=== PATIENT | female | born 1960 | race Caucasian/White ===

== ENCOUNTER 2018-10-12 08:09 | Inpatient (IN) | payer OTHER ==
[~2018-10-12] VITALS: Ht 170.2 cm; Wt 79.4 kg
[2018-10-12] MEDS ORDERED: VANCOMYCIN 1 GM in IV D5W 250 ML IV ONE (09:00)
--- NOTE | 2018-10-12 09:10 | NUR ---
PT REC'D TO ER C/O EDEMA ZEINA LEGS WOUND OPENED RT SIDE OF CALF BROWISH COLOR RT HEAL SBCESS OPENED . ULTRASOUND CALLED. HARD STICK PT USES . NO TEMP PT VERY CALM AND NICE . LAB IN CULTURES AND LABS DRAWN SENT TO LAB AWAITING EVALUATION BY ER PROVIDER.
[2018-10-12 09:26] LABS: BASOPHILS % (AUTO) 0.7 % (0.0-2.0); EOSINOPHILS % (AUTO) 1.5 % (0.0-6.0); HEMATOCRIT 27 % (33-45); HEMOGLOBIN 8.7 g/dL (11.5-14.8); LYMPHOCYTES % (AUTO) 40.1 % (20.0-44.0); MEAN CORPUSCULAR HGB CONC 33 g/dl (31.0-36.0); MEAN CORPUSCULAR VOLUME 85 fL (82-100); MONOCYTES # (AUTO) 0.4 /CMM (0.1-1.30); MONOCYTES % (AUTO) 8.3 % (2.0-12.0); NEUTROPHILS # (AUTO) 2.5 /CMM (1.8-8.9); NEUTROPHILS % (AUTO) 49.4 % (43.0-81.0); PLATELET COUNT (AUTO) 253 /CMM (150-450); RED BLOOD CELL COUNT(AUTO) 3.12 MIL/uL (4.0-5.2); WHITE BLOOD COUNT (AUTO) 5.1 K/uL (4.3-11.0)
[2018-10-12 09:32] LABS: CALCIUM, SERUM 8.2 mg/dL (8.5-10.1); POTASSIUM 3.2 mmol/L (3.5-5.1)
[2018-10-12 09:38] LABS: ALBUMIN 2.7 g/dL (3.4-5.0); BILIRUBIN,DIRECT 0.1 mg/dL (0.0-0.2); BILIRUBIN,TOTAL 0.2 mg/dL (0.2-1.0); TOTAL PROTEIN, SERUM 7.9 g/dL (6.4-8.2)
--- NOTE | 2018-10-12 10:00 | NUR ---
VANCO 1 GM GIVEN PER MD ORDER
--- NOTE | 2018-10-12 10:06 | NUR ---
CALLED [facility] ITS YOLANDA
--- NOTE | 2018-10-12 10:06 | NUR ---
ASKED FOR A BED
--- NOTE | 2018-10-12 10:16 | NUR ---
204-1 MS YOLANDA WEISS CELLULITIS
[2018-10-12] MEDS ORDERED: LEVO25TA7 PO (10:29)
--- NOTE | 2018-10-12 10:30 | NUR ---
RT FA IV SITE 20G INFUSING VANCO TO THE FLOOR REPORT GIVEN TO RN STABLE FOR TRANSFER
--- NOTE | 2018-10-12 10:30 | NUR ---
PT VOIDED 500CC CLOUDY URINE UA SENT TO LAB
[2018-10-12 11:15] VITALS: BP 125/74
[2018-10-12] MEDS ORDERED: ZOLPIDEM TARTRATE 5 MG TABLET PO PRN (12:00)
[2018-10-12] MEDS ORDERED: Z GUARD REMEDY 2 OZ OINT TP PRN (12:00)
[2018-10-12] MEDS ORDERED: ACETAMINOPHEN 325 MG TABLET PO PRN (12:00)
[2018-10-12] MEDS ORDERED: HYDROCODONE/APAP 5/325MG 1 EACH TABLET PO PRN (12:00)
[2018-10-12] MEDS ORDERED: ONDANSETRON HCL/PF 4 MG/2 ML VIAL IVP PRN (12:00)
[2018-10-12] MEDS ORDERED: MAGNESIUM HYDROXIDE 30 ML UDC PO PRN (12:00)
[2018-10-12] MEDS ORDERED: FEE PK DOSING 1 MIN EA MC ONE (12:13)
--- NOTE | 2018-10-12 12:15 | NUR ---
MS AGED OR DISABLED CARE WORKER NOTES RECEIVED PT FROM ER DEPARTMENT WITH 1 NURSE ASSIST, ARRIVED AT THE ROOM AT 1110 VIA STRETCHER. PT INTERMITTENTLY DOZING OFF, EASILY AROUSED. PER ER NURSE, PT HAS BEEN ON AND OF, AND SLEEPY DUE TO NO SLEEP LAST NIGHT. PT TOLERATING RA, WITH NO ACUTE RESPIRATORY DISTRESS. PT DENIES ANY PAIN OR THIS COMFORT AT THE TIME OF ADMISSION. PT ADMITTED FOR DX OF BLE EDEMA. SKIN ASSESSED. PICTURES TAKEN AND FILED IN THE CHART. ADMITTING HOSPITALIST UNDERTAKER HELPER/CC MADE AWARE OF ADMISSION. ADMISSION INFORMATION PROVIDED BY THE PT; SOME OF QUESTIONS PT CAN'T RECALL AND STILL FEELING SLEEPY AND DOESN'T WANT TO BE BOTHERED. PIV TO RFA G20 SL, FLUSHED WITH NS, INTACT AND OPERATIONAL. PT KEPT COMFORTABLE. CALL LIGHT AND FLUID KEPT WITHIN REACH. PT'S BED IN LOWEST, LOCKED POSITION WITH SR X2. WILL CONTINUE PLAN OF CARE.
[2018-10-12 12:54] LABS: APPEARANCE,URINE CLEAR (CLEAR); BILIRUBIN,URINE NEGATIVE (NEGATIVE); BLOOD, URINE NEGATIVE Ery/uL (NEGATIVE); COLOR,URINE YELLOW (YELLOW); KETONES,URINE NEGATIVE (NEGATIVE); LEUKOCYTE ESTERASE ,URINE 1+ (NEGATIVE); NITRITE, URINE NEGATIVE (NEGATIVE); PROTEIN,URINE TRACE mg/dl (NEGATIVE); UGLUCOSE NEGATIVE (NEGATIVE); UROBILINOGEN,URINE 0.2 EU/dL (0.2)
[2018-10-12 13:00] VITALS: BP 125/74
[2018-10-12 13:53] LABS: BACTERIA,URINE Rare /HPF (None Seen); RBC,URINE 0-2 /HPF (0-2); SQUAMOUS EPITHELIAL CELL,UR Few /HPF (None Seen); WBC,URINE 20-30 /HPF (0-3)
--- NOTE | 2018-10-12 13:55 | NUR ---
MS RN NOTES SEEN AND EVALUATED BY HARBOUR MASTER/CC. AWARE OF PT'S LEVEL OF CONSCIOUSNESS. ORDERED CT OF CHEST AND ABDOMEN STAT. WILL CONTINUE TO MONITOR.
[2018-10-12] MEDS ORDERED: POTASSIUM CHLORIDE 10 MEQ TABLET.SA PO ONE (14:00)
--- NOTE | 2018-10-12 14:00 | NUR ---
MS RN NOTES POTASSIUM REPLACEMENT 10MEQ PO AT 1400, NOT GIVEN. DOSES CHANGED TO IV PER PT IS DIFFICULT TO AROUSED. WILL CONTINUE TO MONITOR.
[2018-10-12] MEDS: IV NS 0.9% 1,000 ML IV PRN (14:46)
[2018-10-12] MEDS ORDERED: POTASSIUM CL. PREMIX PERIPHER. 50 ML IV SCH (15:00)
[2018-10-12] MEDS ORDERED: POTASSIUM CHLORIDE 20 MEQ TAB.PRT.SR PO ONE (15:30)
--- NOTE | 2018-10-12 15:31 | NUR ---
MS RN NOTES PT AWAKE, REQUESTED OK TO GET POTASSIUM PO FOR REMAINING DOSES. APARTMENT HOTEL MANAGER/CC MADE AWARE. WILL CONTINUE TO MONITOR.
[2018-10-12 16:00] VITALS: BP 99/61
--- NOTE | 2018-10-12 18:59 | NUR ---
MS RN CLOSING NOTES PT REMAINS IN BED, STILL SLEEPY AND TIRED VERBALIZED. PT INTERMITTENTLY DOZING OFF, EASILY AROUSED WHEN CALLED BY NAME. IVF NS AT 75 ML/HR TO RFA G20 , INTACT AND FLUID INFUSING WELL. ALL NEEDS AND CARE ATTENDED. PT KEPT COMFORTABLE. BLE ELEVATED. CALL LIGHT AND FLUID KEPT WITHIN REACH. PT'S BED IN LOWEST, LOCKED POSITION WITH SR X2. WILL ENDORSE TO INCOMING NIGHT NURSE FOR LAMONT.
--- NOTE | 2018-10-12 19:33 | NUR ---
MS RN RECEIVE PT IN BED A/O X 3, ASLEEP AND EASILY AWAKEN, STABLE RESPIRATIONS EVEN AND UNLABORED, SAFETY MEASURES IN PLACE. WILL CONTINUE TO MONITOR
[2018-10-12 20:00] VITALS: BP 124/75
[2018-10-12 20:06] VITALS: BP 124/75
--- NOTE | 2018-10-12 21:00 | NUR ---
RN NOTES SECURITY CALLED FOR VISITOR. ASKED PT IF SHE IS EXPECTING A VISITOR PT PREFERS TO VISIT HER IN AM PT WANTED TO SLEEP AT THIS TIME.
[2018-10-13] MEDS: IV NS 0.9% 1,000 ML IV PRN ×2 (05:15→19:41)
--- NOTE | 2018-10-13 06:11 | NUR ---
MS RN ASLEEP AND EASILY AWAKEN, RESPIRATIONS EVEN AND UNLABORED. SLEPT WELL THROUGHOUT THE NIGHT. KEPT CLEAN AND DRY AND COMFORTABLE. NEEDS ATTENDED AND ANTICIPATED, NO C/O OF PAIN. OFFLOAD HEELS AND ELBOWS AT ALL TIMES. ASSISTED REPOSITION EVERY 2 HOURS. SAFETY MEASURES AT ALL TIMES. ENDORSE TO THE NEXT SHIFT.
[2018-10-13 06:22] LABS: BASOPHILS % (AUTO) 0.5 % (0.0-2.0); EOSINOPHILS % (AUTO) 1.4 % (0.0-6.0); HEMATOCRIT 26 % (33-45); HEMOGLOBIN 8.4 g/dL (11.5-14.8); LYMPHOCYTES # (AUTO) 1.3 /CMM (0.8-4.8); LYMPHOCYTES % (AUTO) 29.9 % (20.0-44.0); MEAN CORPUSCULAR HGB CONC 33 g/dl (31.0-36.0); MEAN CORPUSCULAR VOLUME 84 fL (82-100); MONOCYTES # (AUTO) 0.3 /CMM (0.1-1.30); NEUTROPHILS # (AUTO) 2.6 /CMM (1.8-8.9); NEUTROPHILS % (AUTO) 61.2 % (43.0-81.0); PLATELET COUNT (AUTO) 208 /CMM (150-450); RED BLOOD CELL COUNT(AUTO) 3.07 MIL/uL (4.0-5.2); WHITE BLOOD COUNT (AUTO) 4.2 K/uL (4.3-11.0)
[2018-10-13 06:45] LABS: CALCIUM, SERUM 7.8 mg/dL (8.5-10.1); CREATININE 1.2 mg/dL (0.6-1.3); MAGNESIUM 1.9 mg/dL (1.8-2.4); PHOSPHORUS 3.4 mg/dL (2.5-4.9); POTASSIUM 3.4 mmol/L (3.5-5.1)
--- NOTE | 2018-10-13 07:31 | NUR ---
RN OPENING NOTES PT SLEEPING IN BED. NO APPARENT S/S OF PAIN, DISTRESS OR SOB AT THIS TIME. PT HAS RIGHT FOREARM #20 IV INTACT AND RUNNING NS @75ML/HR. SAFETY PRECAUTIONS IN PLACE, BED IN LOWEST LOCKED POSITION, X2 SIDE RAILS UP AND CALL LIGHT WITHIN REACH. WILL CONTINUE TO MONITOR.
[2018-10-13 08:00] VITALS: BP 113/74
[2018-10-13] MEDS ORDERED: POTASSIUM CHLORIDE 20 MEQ TAB.PRT.SR PO SCH (08:00)
[2018-10-13] MEDS ORDERED: VANCOMYCIN 1 GM in IV D5W 250 ML IV SCH ×2 (10:00→21:00)
[2018-10-13 16:00] VITALS: BP 141/76
--- NOTE | 2018-10-13 19:10 | NUR ---
MS RN NOTE RECEIVED PT IN STABLE CONDITION A&O X3, ABLE TO MAKE NEEDS KNOWN. CURRENTLY RESTING IN BED, GUEST AT BEDSIDE. NO SIGNS OF SOB OR DISTRESS, NO C/O PAIN. IV IN R FA IN PLACE WITH IVF INFUSING, TOLERATING WELL. ALL CURRENT NEEDS ATTENDED TO. BED LOW, LOCKED, UPPER RAILS UP, AND CALL LIGHT WITHIN REACH. WILL CONT. TO MONITOR.
--- NOTE | 2018-10-13 19:39 | NUR ---
RN OPENING NOTES PT SLEEPING IN BED. NO APPARENT S/S OF PAIN, DISTRESS OR SOB DURING SHIFT. PT HAS RIGHT FOREARM #20 IV INTACT AND RUNNING NS @75ML/HR. SAFETY PRECAUTIONS IN PLACE, BED IN LOWEST LOCKED POSITION, X2 SIDE RAILS UP AND CALL LIGHT WITHIN REACH. WILL ENDORSE TO FURNITURE SHAMPOOER NURSE FOR CONTINUITY OF CARE.
[2018-10-13 20:05] VITALS: BP 119/67
--- NOTE | 2018-10-13 21:34 | NUR ---
MS RN NOTE PT. STATING THAT SHE IS GONG THROUGH WITHDRAWAL OF METHADONE. DEMANDING TO LEAVE HOSPITAL IMMEDIATELY. PT. PULLED OUT OWN IV AND RIPPED OFF HOSPITAL WRISTBAND. REFUSING TO SIGN AMA FORM. RISKS AND BENEFITS MADE AWARE, VERBALIZATION OF UNDERSTANDING. ALL BELONGINGS TAKEN WITH PT. ESCORTED BY PARKING LOT ATTENDANT AND CASHIER TO FRONT OF HOSPITAL AND PT PICKED UP IN PERSONAL VEHICLE. EVELYN ADAM AND NURSING ELECTRIC MULE DRIVER MADE AWARE OF PT. DEPARTURE.
[2018-10-14] MEDS ORDERED: LEVOTHYROXINE SODIUM 25 MCG TABLET PO SCH (07:30)
--- NOTE | 2018-10-14 08:17 | NUR ---
Social service consult requested by GILBERTO Stroud for homelessness. SW unable to assess pt. due to pt. leaving the hospital AMA last night.
--- NOTE | 2018-10-18 08:08 | NUR ---
ECHO REPORT IS DONE AWAITING FOR REPORT TO CROSS OVER TO [facility].
== END 2018-10-13 21:34 | disposition left against medical advice (07) | DRG 469 ==
LOC: ER 08:13 → MEDSG2 10:25
PROVIDERS: ADMIT Nurse Practitioner Acute Care; ATTEND Nurse Practitioner Acute Care
DX: N17.0 Acute kidney failure with tubular necrosis (principal); E44.0 Moderate protein-calorie malnutrition; I87.1 Compression of vein; L03.116 Cellulitis of left lower limb; Z85.72 Personal history of non-Hodgkin lymphomas; N18.9 Chronic kidney disease, unspecified; Z92.21 Personal history of antineoplastic chemotherapy; D63.8 Anemia in other chronic diseases classified elsewhere; E87.6 Hypokalemia; Z59.0 Homelessness
CPT/HCPCS: 36415; 71045-TC; 71250-TC; 73590-TC; 80048-TC; 80061-TC; 80076-TC; 81000-TC; 83735-TC; 84100-TC; 85025-TC; 87040-TC; 87081-TC; 87086-TC; 93307-TC; 93970-TC; A6402; G0378; J3370; J3480; J7030; J7060

== ENCOUNTER 2019-02-15 02:05 | Emergency (ER) | payer OTHER ==
[~2019-02-15] VITALS: Ht 174 cm; Wt 63.5 kg
[~2019-02-15 02:05] MED LIST: LEVO25TA7 PO
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
[2019-02-15] MEDS ORDERED: LORAZEPAM 0.5 MG TABLET ONE (03:47)
[2019-02-15] MEDS ORDERED: LORAZEPAM 1 MG TABLET PO ONE (04:00)
[2019-02-15 04:12] VITALS: BP 123/76
--- NOTE | 2019-02-15 04:12 | NUR ---
Patient is ambulatory, with steady gait. Patient discharged to home in stable condition. Written and verbal after care instructions given. Patient verbalizes understanding of instruction.
== END 2019-02-15 04:13 | disposition home or self-care (01) ==
LOC: ER 02:07
DX: S16.1XXA Strain of muscle, fascia and tendon at neck level, initial encounter (principal); R51 Headache; F17.200 Nicotine dependence, unspecified, uncomplicated; Z59.0 Homelessness; Z79.899 Other long term (current) drug therapy; V49.59XA Passenger injured in collision with other motor vehicles in traffic accident, initial encounter; Y93.89 Activity, other specified; Y92.488 Other paved roadways as the place of occurrence of the external cause; Y99.8 Other external cause status
CPT/HCPCS: 70450-TC; 72125-TC

== ENCOUNTER 2019-03-20 22:30 | Emergency (ER) | payer OTHER ==
[~2019-03-20] VITALS: Ht 172.7 cm; Wt 63.5 kg
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
[2019-03-20] MEDS ORDERED: METOCLOPRAMIDE HCL 10 MG/2 ML VIAL IV ONE (23:00)
[2019-03-20] MEDS ORDERED: SUMATRIPTAN SUCCINATE 6 MG/0.5 ML VIAL SQ ONE ×2 (23:00→23:04)
[2019-03-20] MEDS ORDERED: IV NS 0.9% 1,000 ML BAG IV ONE (23:00)
[2019-03-20] MEDS ORDERED: METOCLOPRAMIDE HCL 10 MG/2 ML VIAL ONE (23:05)
--- NOTE | 2019-03-20 23:28 | NUR ---
PT TAKEN TO CT
--- NOTE | 2019-03-21 00:27 | NUR ---
PT VERBALIZED FEELING MUCH BETTER. AOX4.VSS AT THIS TIME. AMBULATORY
[2019-03-21 01:29] VITALS: BP 141/89
== END 2019-03-21 01:29 | disposition home or self-care (01) ==
LOC: ER 22:30
DX: G43.909 Migraine, unspecified, not intractable, without status migrainosus (principal); F17.200 Nicotine dependence, unspecified, uncomplicated; Z59.0 Homelessness; Z79.899 Other long term (current) drug therapy
CPT/HCPCS: 70450; 96372; 96374; 99284; J2765; J3030; J7030 ×2

== ENCOUNTER 2019-04-13 23:27 | Emergency (ER) | payer OTHER ==
[~2019-04-13] VITALS: Ht 172.7 cm; Wt 63.5 kg
--- NOTE | 2019-04-13 23:48 | NUR ---
PT PRESENTED TO THE ER WITH A C/O PAIN AND BURNING W/URINATION, FEVER, CHILLS, NAUSEA, BODY ACHES, AND CONGESTION. PT AMBULATED INTO THE ER WITH A SLOW STEADY GAIT.
[2019-04-14] MEDS ORDERED: ONDANSETRON HCL/PF 4 MG/2 ML VIAL ONE (00:01)
[2019-04-14] MEDS ORDERED: MORPHINE SULFATE INJ 4 MG/ML DISP.SYRIN ONE (00:01)
[2019-04-14] MEDS: IV NS 0.9% 1,000 ML BAG IV ONE (00:29)
[2019-04-14 00:32] LABS: BASOPHILS % (AUTO) 0.2 % (0.0-2.0); EOSINOPHILS % (AUTO) 0.1 % (0.0-6.0); HEMATOCRIT 33 % (33-45); HEMOGLOBIN 10.9 g/dL (11.5-14.8); LYMPHOCYTES % (AUTO) 9.8 % (20.0-44.0); MEAN CORPUSCULAR HGB CONC 33 g/dl (31.0-36.0); MEAN CORPUSCULAR VOLUME 94 fL (82-100); MONOCYTES # (AUTO) 1.2 /CMM (0.1-1.30); MONOCYTES % (AUTO) 11.8 % (2.0-12.0); NEUTROPHILS # (AUTO) 7.8 /CMM (1.8-8.9); NEUTROPHILS % (AUTO) 78.1 % (43.0-81.0); PLATELET COUNT (AUTO) 158 /CMM (150-450); RED BLOOD CELL COUNT(AUTO) 3.48 MIL/uL (4.0-5.2)
[2019-04-14] MEDS: MORPHINE SULFATE INJ 2 MG/ML DISP.SYRIN IV ONE (00:32)
[2019-04-14] MEDS: ONDANSETRON HCL/PF 4 MG/2 ML VIAL IVP ONE (00:32)
[2019-04-14 00:37] LABS: APPEARANCE,URINE TURBID (CLEAR); BILIRUBIN,URINE NEGATIVE (NEGATIVE); BLOOD, URINE LARGE Ery/uL (NEGATIVE); COLOR,URINE YELLOW (YELLOW); KETONES,URINE NEGATIVE (NEGATIVE); LEUKOCYTE ESTERASE ,URINE LARGE (NEGATIVE); NITRITE, URINE POSITIVE (NEGATIVE); PH,URINE 6.5 (5.0-8.0); PROTEIN,URINE 100 mg/dl (NEGATIVE); UGLUCOSE NEGATIVE (NEGATIVE)
[2019-04-14 00:42] LABS: CALCIUM, SERUM 8.2 mg/dL (8.5-10.1); CREATININE 1.1 mg/dL (0.6-1.3); POTASSIUM 3.3 mmol/L (3.5-5.1)
[2019-04-14 00:42] LABS: BACTERIA,URINE Few /HPF (None Seen); SQUAMOUS EPITHELIAL CELL,UR Rare /HPF (None Seen); WBC,URINE TOO NUMEROUS TO COUN /HPF (0-3)
[2019-04-14 00:47] LABS: ALBUMIN 2.7 g/dL (3.4-5.0); BILIRUBIN,DIRECT 0.2 mg/dL (0.0-0.2); BILIRUBIN,TOTAL 0.5 mg/dL (0.2-1.0); TOTAL PROTEIN, SERUM 7.7 g/dL (6.4-8.2)
[2019-04-14] MEDS ORDERED: LIDOCAINE VISCOUS 2% UD 15 ML UDC ONE (00:49)
--- NOTE | 2019-04-14 00:56 | NUR ---
CALLED [facility] TO F/U W/ CT RESULT
--- NOTE | 2019-04-14 01:34 | NUR ---
IV removed. Catheter intact and site benign. Pressure and 4x4 applied to site. No bleeding noted. Patient discharged to home in stable condition. Written and verbal after care instructions given. Patient verbalizes understanding of instruction AND RX. PT IS TAKING A TAXI HOME VSS. NAD NOTED.
[2019-04-14 01:36] VITALS: BP 132/78
== END 2019-04-14 01:38 | disposition home or self-care (01) ==
LOC: ER 23:29
DX: N39.0 Urinary tract infection, site not specified (principal); K59.00 Constipation, unspecified; K44.9 Diaphragmatic hernia without obstruction or gangrene; F17.200 Nicotine dependence, unspecified, uncomplicated; Z59.0 Homelessness; Z79.899 Other long term (current) drug therapy
CPT/HCPCS: 36415; 74176; 80048; 80076; 81001; 83690; 85025; 87077; 87086; 87186; 96374; 96375; 99284; J2270; J2405; J7030; 81000-TC

== ENCOUNTER 2019-04-21 23:35 | Inpatient (IN) | payer OTHER ==
[~2019-04-21] VITALS: Ht 162.6 cm; Wt 62.6 kg
--- NOTE | 2019-04-21 23:55 | NUR ---
Pt BIBSELF FROM HOME C/O COUGH & CONGESTION WITH SOB. Pt IS A/OX3, VERBAL, ABLE TO MAKE NEEDS KNOWN. Pt IS BEING SEEN BY MD AT BEDSIDE. WILL CONTINUE TO MONITOR Pt
[2019-04-22] VITALS (46 sets, daily range): BP systolic 62–132; BP diastolic 35–78
[2019-04-22] MEDS ORDERED: IPRATROPIUM NEB FS 0.5 MG/2.5 ML AMPUL.NEB NEB ONE
[2019-04-22] MEDS ORDERED: NITROGLYCERIN PACKET 1 GM PACKET TD ONE
[2019-04-22] MEDS ORDERED: ALBUTEROL FS 2.5 MG/3 ML VIAL.NEB NEB ONE
[2019-04-22] MEDS ORDERED: methylPREDNISolone SOD SUCC 125 MG/2ML VIAL IV ONE
--- NOTE | 2019-04-22 00:35 | NUR ---
IV ACCESS STARTED ON LWRIST #20G, SL.
[2019-04-22] MEDS ORDERED: methylPREDNISolone SOD SUCC 125 MG/2ML VIAL ONE (00:45)
[2019-04-22] MEDS ORDERED: NITROGLYCERIN PACKET 1 GM PACKET ONE (00:46)
--- NOTE | 2019-04-22 00:54 | NUR ---
CXR BEING DONE AT BEDSIDE
[2019-04-22 01:02] LABS: BASOPHILS % (AUTO) 0.1 % (0.0-2.0); HEMATOCRIT 34 % (33-45); HEMOGLOBIN 11.5 g/dL (11.5-14.8); LYMPHOCYTES # (AUTO) 0.3 /CMM (0.8-4.8); LYMPHOCYTES % (AUTO) 2.2 % (20.0-44.0); MEAN CORPUSCULAR HGB CONC 34 g/dl (31.0-36.0); MEAN CORPUSCULAR VOLUME 92 fL (82-100); MONOCYTES # (AUTO) 0.2 /CMM (0.1-1.30); MONOCYTES % (AUTO) 1.6 % (2.0-12.0); NEUTROPHILS # (AUTO) 13.9 /CMM (1.8-8.9); NEUTROPHILS % (AUTO) 96.1 % (43.0-81.0); PLATELET COUNT (AUTO) 273 /CMM (150-450); RED BLOOD CELL COUNT(AUTO) 3.73 MIL/uL (4.0-5.2); WHITE BLOOD COUNT (AUTO) 14.4 K/uL (4.3-11.0)
[2019-04-22 01:13] LABS: CALCIUM, SERUM 8.3 mg/dL (8.5-10.1); CARBON DIOXIDE 27 mmol/L (21-32); CHLORIDE 101 mmol/L (98-107); CREATININE 1.5 mg/dL (0.6-1.3); GLUCOSE 119 mg/dL (74-106); POTASSIUM 3.6 mmol/L (3.5-5.1); SODIUM SERUM 139 mmol/L (136-145); UREA NITROGEN, BLOOD 43 mg/dL (7-18)
[2019-04-22 01:26] LABS: ALANINE AMINOTRANSFERASE 26 U/L (12-78); ALBUMIN 2.4 g/dL (3.4-5.0); ALKALINE PHOSPHATASE 262 U/L (46-116); ASPARTATE AMINOTRANSFERASE 59 U/L (15-37); B-TYPE NATRIURETIC PEPTIDE 1885 PG/ML (0-125); BILIRUBIN,DIRECT 0.4 mg/dL (0.0-0.2); BILIRUBIN,TOTAL 0.8 mg/dL (0.2-1.0); TOTAL PROTEIN, SERUM 8.1 g/dL (6.4-8.2)
[2019-04-22] MEDS ORDERED: IOHEXOL-350 100 ML VIAL IV ONE ×2 (01:49→02:37)
[2019-04-22] MEDS ORDERED: FUROSEMIDE 20 MG/2 ML VIAL ONE ×2 (01:51→04:43)
[2019-04-22] MEDS ORDERED: POTASSIUM CHLORIDE 20 MEQ TAB.PRT.SR PO ONE ×2 (01:52→02:00)
[2019-04-22] MEDS ORDERED: IV NS 0.9% 500 ML BAG IV ONE (02:00)
[2019-04-22] MEDS ORDERED: FUROSEMIDE 20 MG/2 ML VIAL IV ONE ×2 (02:00→08:00)
[2019-04-22] MEDS ORDERED: LEVOFLOXACIN 750 MG /D5W 150ML 150 ML IV ONE ×2 (02:00→03:26)
[2019-04-22] MEDS ORDERED: LORAZEPAM INJ 2 MG/ML VIAL ONE (02:18)
--- NOTE | 2019-04-22 02:31 | NUR ---
verbal order given by Dr. Harris ok to give ativan 1mg iv for pt's anxiety
--- NOTE | 2019-04-22 02:33 | NUR ---
pt taken down to radiology for ct angio
--- NOTE | 2019-04-22 03:00 | NUR ---
new iv access on LAC #18g
--- NOTE | 2019-04-22 03:09 | NUR ---
sup called for tele bed
--- NOTE | 2019-04-22 03:12 | NUR ---
TELE BED 322-2
[2019-04-22] MEDS ORDERED: OLANZAPINE 5 MG TABLET ONE (03:20)
[2019-04-22] MEDS ORDERED: ALBUTEROL FS 2.5 MG/3 ML VIAL.NEB ONE (03:25)
[2019-04-22] MEDS ORDERED: IPRATROPIUM NEB FS 0.5 MG/2.5 ML AMPUL.NEB ONE (03:25)
[2019-04-22] MEDS ORDERED: MAGNESIUM HYDROXIDE 30 ML UDC PO PRN (03:30)
[2019-04-22] MEDS ORDERED: IV NS 0.9% 1,000 ML IV PRN (03:30)
[2019-04-22] MEDS ORDERED: ZOLPIDEM TARTRATE 5 MG TABLET PO PRN (03:30)
[2019-04-22] MEDS ORDERED: MAG HYDROX/AL HYDROX/SIMETH 30 ML UDC PO PRN (03:30)
[2019-04-22] MEDS ORDERED: ONDANSETRON HCL/PF 4 MG/2 ML VIAL IVP PRN (03:30)
[2019-04-22] MEDS ORDERED: HYDROCODONE/APAP 5/325MG 1 EACH TABLET PO PRN (03:30)
[2019-04-22] MEDS ORDERED: LORAZEPAM INJ 2 MG/ML VIAL IV ONE (03:30)
[2019-04-22] MEDS ORDERED: OLANZAPINE 5 MG TABLET PO ONE (03:30)
--- NOTE | 2019-04-22 04:33 | NUR ---
repeat ekg being done at bedside
--- NOTE | 2019-04-22 04:33 | NUR ---
verbal order given by dr gonzalez to give morphine 6mg iv
[2019-04-22] MEDS ORDERED: MORPHINE SULFATE INJ 2 MG/ML DISP.SYRIN ONE (04:35)
[2019-04-22] MEDS ORDERED: MORPHINE SULFATE INJ 4 MG/ML DISP.SYRIN ONE (04:35)
[2019-04-22] MEDS ORDERED: PROPOFOL 100 ML IV ONE (04:37)
--- NOTE | 2019-04-22 04:37 | NUR ---
per dr gonzalez pt to be intubated. called RT
[2019-04-22] MEDS ORDERED: SUCCINYLCHOLINE CHLORIDE 20 MG/ML VIAL ONE (04:38)
--- NOTE | 2019-04-22 04:38 | NUR ---
morphine 6mg not given
[2019-04-22] MEDS ORDERED: ETOMIDATE 2 MG/ML VIAL ONE (04:39)
[2019-04-22] MEDS ORDERED: PROPOFOL 100 ML ONE (04:39)
--- NOTE | 2019-04-22 04:44 | NUR ---
PT GOT SUCCESSFULLY INTUBATED BY DR DESAI AT THE BED SIDE. TUBE SIZE:7.0 AND 22 AT LIP. PT REMAINED ON CONTINUOUS MONITORING AND CLOSE OBSERVATION,
--- NOTE | 2019-04-22 04:45 | NUR ---
RT NOTE Pt rec'd on 10lpm Simple mask. PT showed signs resp distress and lethargy. Pt orally intubated via ETT sz #7.0, 22CM secured @ the lipline per md request. Colormetric Co2 color change confirmed. Clear bilateral breath sounds heard. pt placed on noted setting per md orders. Waiting on chest xray results. Post intubation abg to be taken. Alarms are set and audible. Vent plugged into red outlet. Ambu bag bedside. Will continue to monitor closely Addendum: 04/22/19 at 0615 by ALFIE JONES RT Amended: Links added.
--- NOTE | 2019-04-22 04:50 | NUR ---
pt started on propofol at rate of 5mcg/kg/hr= 2.37ml/hr. on ongoing monitoring .
[2019-04-22] MEDS ORDERED: SUCCINYLCHOLINE CHLORIDE 20 MG/ML VIAL IV ONE (05:00)
[2019-04-22] MEDS ORDERED: MORPHINE SULFATE INJ 4 MG/ML DISP.SYRIN IV PRN (05:00)
[2019-04-22] MEDS ORDERED: ETOMIDATE 2 MG/ML VIAL IV ONE (05:00)
[2019-04-22] MEDS ORDERED: IV NS 0.9% 1,000 ML BAG IV ONE (05:00)
[2019-04-22 05:14] LABS: ABG BASE EXCESS -5.2 mmol/L; ABG OXYGEN SATURATION 99.1 % (92.0-98.5); ABG PCO2 48.8 mmHg (35.0-45.0); ABG PH 7.269 (7.350-7.450); ABG PO2 352.9 mmHg (75.0-100.0); AaDO2 311.3 mmHg; COHb 0.4 % (0.5-1.5); MetHb 0.4 % (0.0-1.5); O2Hb 98.3 % (94.0-97.0); PEEP,BG 0 cm H2O; SITE, ABG Right Radial; VENT MODE, BG AC 16 450 100%
--- NOTE | 2019-04-22 05:19 | NUR ---
RT NOTE Increased RR to 18 and CO2 to 550 per md orders. Addendum: 04/22/19 at 0616 by ALFEI JONES RT Amended: Links added.
[2019-04-22] MEDS ORDERED: HALOPERIDOL LACTATE INJ 5 MG/ML VIAL ONE ×2 (05:39)
--- NOTE | 2019-04-22 05:45 | NUR ---
per md ok to give 1L NS bolus due to low bp.
--- NOTE | 2019-04-22 05:47 | NUR ---
new vent settings set at: AC 18 Tidal Volume 550 PEEP 0
--- NOTE | 2019-04-22 05:56 | NUR ---
VS: BP 97/58 HR 85 02 100% PROPOFOL RUNNING AT 15MCG
--- NOTE | 2019-04-22 06:13 | NUR ---
Pt WAS WAKING UP, ATTEMPTING TO GET UP. INCREASED PROPOFOL RATE TO 25MCG. VS: BP 108/66 HR 82 O2 100%
--- NOTE | 2019-04-22 06:47 | NUR ---
VS BP: 120/63 HR 78 O2 100% Pt WAS BECOMING AROUSABLE. INCREASED PROPOFOL RATE TO 30MCG. WILL CONTINUE TO MONITOR Pt
--- NOTE | 2019-04-22 06:52 | NUR ---
VS: BP 108/68 HR 75 O2 100% R 18 DECREASED PROPOFOL RATE TO 25MCG. WILL CONTINUE TO MONITOR Pt AT BEDSIDE.
--- NOTE | 2019-04-22 07:05 | NUR ---
VS: BP 111/70 HR 77 O2 100% R 18 PROPOFOL RATE CONTINUED AT 25MCG.
--- NOTE | 2019-04-22 07:09 | NUR ---
VS: BP 127/78 HR 78 O2 100% R18 Pt IS BECOMING AROUSABLE, MOVING UPPER & LOWER EXTREMITIES & MOVING HEAD. INCREASED PROPOFOL RATE TO 30 MCG. WILL CONTINUE TO MONITOR Pt.
[2019-04-22 07:14] LABS: BASOPHILS % (AUTO) 0.1 % (0.0-2.0); HEMATOCRIT 30 % (33-45); HEMOGLOBIN 10.3 g/dL (11.5-14.8); LYMPHOCYTES # (AUTO) 0.2 /CMM (0.8-4.8); LYMPHOCYTES % (AUTO) 1.8 % (20.0-44.0); MEAN CORPUSCULAR HGB CONC 35 g/dl (31.0-36.0); MEAN CORPUSCULAR VOLUME 91 fL (82-100); MONOCYTES # (AUTO) 0.2 /CMM (0.1-1.30); MONOCYTES % (AUTO) 1.5 % (2.0-12.0); NEUTROPHILS # (AUTO) 10.5 /CMM (1.8-8.9); NEUTROPHILS % (AUTO) 96.6 % (43.0-81.0); PLATELET COUNT (AUTO) 241 /CMM (150-450); RED BLOOD CELL COUNT(AUTO) 3.26 MIL/uL (4.0-5.2); WHITE BLOOD COUNT (AUTO) 10.9 K/uL (4.3-11.0)
[2019-04-22 07:20] LABS: CALCIUM, SERUM 7.5 mg/dL (8.5-10.1); CREATININE 1.1 mg/dL (0.6-1.3); MAGNESIUM 1.7 mg/dL (1.8-2.4); PHOSPHORUS 3.1 mg/dL (2.5-4.9); POTASSIUM 3.4 mmol/L (3.5-5.1)
--- NOTE | 2019-04-22 07:26 | NUR ---
VS: BP 125/69 HR 73 O2 100% R 18 PROPOFOL RATE CONTINUED AT 30MCG.
--- NOTE | 2019-04-22 07:35 | NUR ---
CALLED ICU FLOOR TO GIVE REPORT TO ICU DIRECTOR STRATEGY, BUT WAS TOLD THAT THEY ARE IN THE MIDDLE OF CHANGE OF SHIFT REPORT AND TO CALL BACK LATER WHEN THEY ARE FINISHED. WILL ENDORSE TO ON COMING SOAP INSPECTOR TO GIVE REPORT.
--- NOTE | 2019-04-22 07:54 | NUR ---
REPORT GIVEN TO ICU HISTORICAL GUIDE GILL FOR Pt's LAMONT.
[2019-04-22] MEDS ORDERED: FUROSEMIDE 20 MG/2 ML VIAL IV SCH (08:00)
--- NOTE | 2019-04-22 09:00 | NUR ---
RN NOTES RECEIVED PT FROM ER IN ROOM 251 ICU STATUS, PT ORALLY INTUBATED, AND SEDATED, ON PROPOFOL AT 30 MCG/KG/MIN , TOLERATING VENT SETTING WELL , O2 SAT WNL, OG TUBE INSERTED , PLACEMENT VERIFIED BY TWO RNS, ADMISSION SKIN PHOTO TAKEN , L AC IV SITE G 20 CLEAN,DRY AND INTACT, SR UP x3, CALL LIGHT WITHIN EASY REACH, BED LOCKED AND IN LOWEST POSITION, CONTINUE TO MONITOR .
--- NOTE | 2019-04-22 09:16 | NUR ---
Pt transported to ICU via ACLS protocol
[2019-04-22] MEDS: FUROSEMIDE 40 MG/4 ML VIAL IV SCH ×2 (09:39→21:21)
[2019-04-22] MEDS: Magnesium 1GM/D5W 100ML PREMIX 100 ML IV SCH ×2 (09:55→11:53)
--- NOTE | 2019-04-22 10:11 | NUR ---
RT PATIENT WAS TRANSFERRED FROM ER ORALLY INTUBATED ON [facility] WITH NOTED SETTINGS. ALARMS CHECKED + AUDIBLE. ETT SECURED AND IN PROPER POSITION. AMBU BAG AT HOB Addendum: 04/22/19 at 1102 by BRENDEN HUSSEIN RT Amended: Links added.
[2019-04-22 10:15] LABS: THYROID STIMULATING HORMONE 10.521 uIU/mL (0.358-3.74)
[2019-04-22] MEDS: PROPOFOL 100 ML IV PRN ×3 (10:42→21:21)
[2019-04-22] MEDS: OSELTAMIVIR PHOSPHATE 75 MG CAPSULE NG SCH ×2 (10:46→16:59)
[2019-04-22] MEDS ORDERED: NOREPINEPHRINE 8 MG in IV D5W 500 ML IV PRN (11:30)
[2019-04-22] MEDS: Z GUARD REMEDY 2 OZ OINT TP PRN (11:51)
--- NOTE | 2019-04-22 12:00 | NUR ---
RN NOTES R FEMORAL TLC CATHETER INSERTED BY DR LOEPZ .
[2019-04-22 12:19] LABS: ABG BASE EXCESS -0.4 mmol/L; ABG OXYGEN SATURATION 98.7 % (92.0-98.5); ABG PCO2 32.5 mmHg (35.0-45.0); ABG PH 7.464 (7.350-7.450); ABG PO2 236.1 mmHg (75.0-100.0); AaDO2 300.2 mmHg; COHb 0.3 % (0.5-1.5); MetHb 0.6 % (0.0-1.5); O2Hb 97.8 % (94.0-97.0); SITE, ABG Right Radial; VENT MODE, BG AC 18 550 80% +0
[2019-04-22] MEDS ORDERED: DEXTROSE 50%-WATER 50 ML DISP.SYRIN IV PRN (15:00)
--- NOTE | 2019-04-22 17:00 | NUR ---
RN NOTES PT VOMITTED LARGE AMOUNT OF DARK BROWN GASTRIC FLUID ABOUT 500CC , CLAY MAKER NOITFED, OGT ATTACHED TO LIS , NEW ORDER RECEIVED , CONTINUE TO MONITOR .
--- NOTE | 2019-04-22 17:00 | NUR ---
RN NOTES DR CASTELAN NOTIFED REGARDING CHANGE OF THE HEART RYTHEM, NO NEW ORDER GIVEN , CONTINUE TO MONITOR .
[2019-04-22] MEDS: INSULIN REGULAR, HUMAN 100 UNIT/ML 3 ML VIAL SQ PRN (17:39)
[2019-04-22] MEDS: BLOOD SUGAR DIAGNOSTIC 1 EACH STRIP IN SCH (17:40)
[2019-04-22] MEDS: PANTOPRAZOLE 40 MG VIAL IV SCH (17:54)
[2019-04-22] MEDS ORDERED: POTASSIUM CHLORIDE 10 MEQ/50 ML PREMIXED IVPB FOR PERIPHERAL LINE IV ONE (18:00)
--- NOTE | 2019-04-22 18:00 | NUR ---
RN NOTES PT REMAINS INTUBATED AND SEDATED, ON LEVO 8 MCG/ MIN , DIPRIVAN AT 30 MCG/KG/MIN RUNNING , OGT TO LIS WITH SMALL AMOUNT OF DARK BROWNISH GASTRIC FLUID , VSS STABLE , SR UP x3, CALL LIGHT WITHIN EASY REACH, BED LOCKED AND IN LOWEST POSITION, WILL ENDOSE TO CHIEF BUSINESS OFFICER NURSE FOR CONTINUITY OF CARE .
[2019-04-22 18:11] LABS: APPEARANCE,URINE CLEAR (CLEAR); BILIRUBIN,URINE NEGATIVE (NEGATIVE); BLOOD, URINE TRACE-INTA Ery/uL (NEGATIVE); COLOR,URINE YELLOW (YELLOW); KETONES,URINE NEGATIVE (NEGATIVE); LEUKOCYTE ESTERASE ,URINE NEGATIVE (NEGATIVE); NITRITE, URINE NEGATIVE (NEGATIVE); PH,URINE 5.5 (5.0-8.0); PROTEIN,URINE TRACE mg/dl (NEGATIVE); UGLUCOSE NEGATIVE (NEGATIVE); UROBILINOGEN,URINE 0.2 EU/dL (0.2)
[2019-04-22 18:19] LABS: BACTERIA,URINE 1+ /HPF (None Seen); COARSE GRANULAR CASTS,URINE Few /LPF (None Seen); HYALINE CASTS, URINE Few /LPF (None Seen); SQUAMOUS EPITHELIAL CELL,UR Few /HPF (None Seen)
[2019-04-22] MEDS ORDERED: POTASSIUM CL. PREMIX PERIPHER. 50 ML IV SCH (18:30)
[2019-04-22] MEDS: OCTREOTIDE 1,250 MCG in IV NS 0.9% 247.5 ML IV PRN (21:24)
[2019-04-23] VITALS (80 sets, daily range): BP systolic 85–152; BP diastolic 50–90
[2019-04-23] MEDS: BLOOD SUGAR DIAGNOSTIC 1 EACH STRIP IN SCH ×4 (00:23→17:16)
[2019-04-23] MEDS: INSULIN REGULAR, HUMAN 100 UNIT/ML 3 ML VIAL SQ PRN ×4 (00:29→17:16)
[2019-04-23] MEDS: PROPOFOL 100 ML IV PRN ×5 (02:26→20:25)
[2019-04-23 04:44] LABS: BASOPHILS % (AUTO) 0.1 % (0.0-2.0); HEMATOCRIT 31 % (33-45); HEMOGLOBIN 10.5 g/dL (11.5-14.8); LYMPHOCYTES # (AUTO) 0.8 /CMM (0.8-4.8); LYMPHOCYTES % (AUTO) 5.9 % (20.0-44.0); MEAN CORPUSCULAR HGB CONC 34 g/dl (31.0-36.0); MEAN CORPUSCULAR VOLUME 91 fL (82-100); MONOCYTES # (AUTO) 0.5 /CMM (0.1-1.30); MONOCYTES % (AUTO) 3.4 % (2.0-12.0); NEUTROPHILS # (AUTO) 12.9 /CMM (1.8-8.9); NEUTROPHILS % (AUTO) 90.6 % (43.0-81.0); PLATELET COUNT (AUTO) 332 /CMM (150-450); RED BLOOD CELL COUNT(AUTO) 3.39 MIL/uL (4.0-5.2); WHITE BLOOD COUNT (AUTO) 14.2 K/uL (4.3-11.0)
[2019-04-23] MEDS ORDERED: LEVOFLOXACIN 500 MG /D5W 100ML 500 MG in PREMIX 1 EA IV SCH (05:00)
[2019-04-23 05:08] LABS: ALANINE AMINOTRANSFERASE 25 U/L (12-78); ALBUMIN 2.2 g/dL (3.4-5.0); ALKALINE PHOSPHATASE 212 U/L (46-116); ASPARTATE AMINOTRANSFERASE 37 U/L (15-37); BILIRUBIN,TOTAL 0.5 mg/dL (0.2-1.0); CALCIUM, SERUM 8.2 mg/dL (8.5-10.1); CARBON DIOXIDE 24 mmol/L (21-32); CHLORIDE 104 mmol/L (98-107); CREATININE 1.9 mg/dL (0.6-1.3); GLUCOSE 185 mg/dL (74-106); MAGNESIUM 2.8 mg/dL (1.8-2.4); PHOSPHORUS 4.1 mg/dL (2.5-4.9); POTASSIUM 3.5 mmol/L (3.5-5.1); SODIUM SERUM 142 mmol/L (136-145); TOTAL PROTEIN, SERUM 7.5 g/dL (6.4-8.2); UREA NITROGEN, BLOOD 57 mg/dL (7-18)
--- NOTE | 2019-04-23 07:15 | NUR ---
SECOND BAKER NOTES RECEIVED REPORT FROM STORE WAREHOUSE ASSOCIATE. PT SEDATED WITH ETT 7.08/29 @ LIP TOLERATING VENT SETTINGS ORDERED. SEDATED ON PROPOFOL 40MCG/MIN TO RIGHT FEMORAL TRIPLE LUMEN WITH NO DISTRESS NOTED SINUS ON MONITOR WITH OCCASIONAL JUNCTIONAL RHYTHM. TELLEZ CATH DRAINING TO GRAVITY YELLOW URINE. MULTIPLE SCABS TO BLE AND WOUND TO RIGHT CALF AWAITING WOUND CONSULT. BILATERAL WRIST RESTRAINTS CHECKED FOR CIRCULATION WARMTH AND COLOR. NPO /OGT TO LOW INTERMITTENT SUCTION WITH DARK COFFEE GROUND COLOR OUT PUT. UBALDO MIDLINE #18 GAUGE RUNNING OCTREOTIDE @ 50 ML/ HR. RIGHT FEMORAL TRIPLE LUMEN RUNNING LEVOPHED @ 8 MCG/MIN AND IVF TKO @ 10 ML/HR. NO S/S OF HYPER/HYPOGLYCEMIA REPOSITION FRO COMFORT. CONTACT ISOLATION FOR INFLUENZA B SAFETY AND ASPIRATION PRECAUTIONS IN PLACE BED IN LOW LOCKED POSITION WILL CONT TO MONITOR ACCORDINGLY
--- NOTE | 2019-04-23 08:14 | NUR ---
WOUND CARE CONSULT: PT PRESENTS WITH CALLUSED FEET AND RT LATERAL LOWER LEG WOUND PRESENT ON ADMISSION. RECOMMEND DPM CONSULT. MSG LEFT FOR DR LING. PT UNSTABLE TO BE TURNED FOR FULL SKIN ASSESSMENT. WILL SEE PRN. DISCUSSED SKIN PROTECTION WITH NURSING STAFF. IN AGREEMENT WITH PLAN OF CARE. CURRENT [place]TON SCORE IS 14.
[2019-04-23] MEDS: OSELTAMIVIR PHOSPHATE 75 MG CAPSULE NG SCH ×2 (08:38→17:02)
[2019-04-23] MEDS: PANTOPRAZOLE 40 MG VIAL IV SCH ×2 (08:38→17:02)
[2019-04-23] MEDS: HEPARIN SODIUM, PORCINE 5000 UNITS/1 ML VIAL SQ SCH ×2 (08:40→21:10)
--- NOTE | 2019-04-23 09:00 | NUR ---
RIGHT FEMORAL DRESSING CHANGED
--- NOTE | 2019-04-23 10:00 | NUR ---
LEVOPHED HELD PY SBP >130 MAP >65
--- NOTE | 2019-04-23 10:27 | NUR ---
Social service consult requested by ICU YOGESH Bucio for homelessness and drug abuse. Upon chart review and MD notes, pt. is 59-year-old female with past medical history of non-Hodgkin's lymphoma, hypothyroidism, and bilateral lower extremity edema, who brought herself to the ER yesterday AM for evaluation of cough and stuffy nose x6 days. In the ER, her shortness of breath and respiratory failure became progressively worse, and ultimately she was intubated in the ER by the ER physician. Pt. is currently intubated and sedated and unable to provide any information. CHIEF HUMAN RESOURCES OFFICER to assess pt. when pt. is extubated and able to provide information.
--- NOTE | 2019-04-23 11:00 | NUR ---
LEVO STOPPED SBP>130 MAP >65
--- NOTE | 2019-04-23 11:51 | NUR ---
SPOKE WITH SISTER BHARGAVI PEREA [phone]. FWD PHONE NUMBER TO LESTER KRAMER
--- NOTE | 2019-04-23 13:06 | NUR ---
MARKETING SERVICES COORDINATOR contacted pt's sister Cristy , who is the emergency contact on pt's face sheet. Per Cristy, pt. was living in an . Cristy is not sure if she continues to live there. Pt's sister resides in [facility] and hasn't seen the pt. in a few years. Per Cristy, pt. has a history of meth, cocaine, heroin and opioid use. Pt's tox drug screen is positive for methamphetamines and Benzo's. Cristy informed MARKETING SERVICES COORDINATOR that pt. has has a history of overdosing on pills in the past in [facility] when their mother was dying. 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 Cristy is not sure if pt. has a psychiatric diagnosis or psychiatric hospitalizations. Cristy informed MARKETING SERVICES COORDINATOR that pt. has a tendency to go AMA once she is not sedated. MARKETING SERVICES COORDINATOR to assess pt. when she is extubated and able to provide information.
[2019-04-23] MEDS: IV NS 0.9% 250 ML IV PRN (13:19)
[2019-04-23] MEDS: SOD FERRIC GLUC 125 MG in IV NS 0.9% 100 ML IV SCH (14:47)
--- NOTE | 2019-04-23 15:27 | NUR ---
tech at bedside fro bilateral lower leg arterial Doppler
--- NOTE | 2019-04-23 16:45 | NUR ---
bed bath given oral and wound care rendered pt tolerated well
[2019-04-23] MEDS: SILVER SULFADIAZINE 50 GM JAR TP SCH (17:15)
[2019-04-23] MEDS: VITAMINS A AND D 56.7 GM TUBE TP SCH (17:15)
--- NOTE | 2019-04-23 18:05 | NUR ---
DOPPLER DONE AWAITING FOR MD TO READ
--- NOTE | 2019-04-23 18:08 | NUR ---
CARPET OR RUG LAYER HELPER NOTES PT REMAINED STABLE AND AFEBRILE THROUGHOUT SHIFT. TOLERATING VENT SETTINGS ORDERED. CURRENTLY SEDATED ON 50 MCG/MIN WITH LITTLE TO NO AGITATION. SINUS ON MONITOR WITH OCCASIONAL JUNCTIONAL RHYTHM AND DEPRESSED T WAVE. TELLEZ CATH DRAINING TO GRAVITY CLEAR YELLOW URINE. TX TO RIGHT CALF DONE AND BILATERAL FEET. PT REMAINS NPO WITH OGT TO INTERMITTENT SUCTION. RIGHT FEMORAL TRIPLE LUMEN PROPOFOL 50MCG/MIN AND NS @ 10 ML RUNNING ALL LINES FLUSH WITH BLOOD RETURN. LAC #18 GAUGE RUNNING SANDOSTATIN @ 50MCG/HR FOR GI BLEED. SAFETY AND ISOLATION PRECAUTIONS IN PLACE BED IN LOW LOCKED POSITION REPOSITIONED FOR COMFORT.ALL NEEDS MET BY STAFF
[2019-04-23] MEDS ORDERED: FEE PK DOSING 1 MIN EA MC ONE (19:04)
--- NOTE | 2019-04-23 19:30 | NUR ---
PT RCVD ORALLY INTUBATED WITH ETT 7.0 SECURED@ 22 CM LIPLINE. SX DONE . VENT PLUGGED INTO RED OUTLET, VENT ALARMS ON AND AUDIBLE. AMBU BAG AT BEDSIDE. EQUAL CHEST RISE NOTED. NO RESPIRATORY DISTRESS NOTED AT THIS TIME. WILL CONTINUE TO MONITOR
--- NOTE | 2019-04-23 19:31 | NUR ---
REPORT ENDORSED TO NOC
[2019-04-23] MEDS: VANCOMYCIN 1 GM in IV D5W 250 ML IV SCH (21:08)
[2019-04-23] MEDS: OCTREOTIDE 1,250 MCG in IV NS 0.9% 247.5 ML IV PRN (22:55)
[2019-04-24] VITALS (48 sets, daily range): BP systolic 95–121; BP diastolic 54–74
[2019-04-24] MEDS: BLOOD SUGAR DIAGNOSTIC 1 EACH STRIP IN SCH ×4 (00:49→18:07)
[2019-04-24] MEDS: PROPOFOL 100 ML IV PRN ×8 (00:54→23:57)
[2019-04-24] MEDS: INSULIN REGULAR, HUMAN 100 UNIT/ML 3 ML VIAL SQ PRN ×4 (00:56→18:07)
[2019-04-24] MEDS ORDERED: LEVOFLOXACIN 750 MG /D5W 150ML 750 MG in PREMIX 1 EA IV SCH (05:00)
[2019-04-24 05:15] LABS: BASOPHILS % (AUTO) 0.2 % (0.0-2.0); HEMATOCRIT 28 % (33-45); HEMOGLOBIN 9.7 g/dL (11.5-14.8); LYMPHOCYTES # (AUTO) 1.2 /CMM (0.8-4.8); MEAN CORPUSCULAR HGB CONC 35 g/dl (31.0-36.0); MEAN CORPUSCULAR VOLUME 93 fL (82-100); MONOCYTES # (AUTO) 0.2 /CMM (0.1-1.30); MONOCYTES % (AUTO) 2.3 % (2.0-12.0); NEUTROPHILS # (AUTO) 9.4 /CMM (1.8-8.9); NEUTROPHILS % (AUTO) 86.5 % (43.0-81.0); PLATELET COUNT (AUTO) 372 /CMM (150-450); RED BLOOD CELL COUNT(AUTO) 3.04 MIL/uL (4.0-5.2); WHITE BLOOD COUNT (AUTO) 10.8 K/uL (4.3-11.0)
[2019-04-24 05:24] LABS: CALCIUM, SERUM 7.9 mg/dL (8.5-10.1); CREATININE 2.1 mg/dL (0.6-1.3); POTASSIUM 3.2 mmol/L (3.5-5.1)
[2019-04-24 06:07] LABS: *SPE A/G RATIO 0.5 (0.7-1.7); *SPE ALBUMIN 2.2 g/dL (2.9-4.4); *SPE ALPHA-1-GLOBULIN 0.5 g/dL (0.0-0.4); *SPE ALPHA-2-GLOBULIN 1.1 g/dL (0.4-1.0); *SPE BETA GLOBULIN 1.2 g/dL (0.7-1.3); *SPE GLOBULIN, TOTAL 4.1 g/dL (2.2-3.9); *SPE M-SPIKE Not Observed g/dL (Not Observed); *SPEGAMMA GLOBULIN 1.3 g/dL (0.4-1.8)
--- NOTE | 2019-04-24 07:05 | NUR ---
CARPET TILE LAYER NOTES RECEIVED REPORT FROM TENDER COORDINATOR. PT SEDATED WITH ETT 7.08/29 @ LIP TOLERATING VENT SETTINGS ORDERED. SEDATED ON PROPOFOL 50MCG/MIN TO RIGHT FEMORAL TRIPLE LUMEN WITH NO DISTRESS NOTED SINUS ON MONITOR WITH OCCASIONAL JUNCTIONAL RHYTHM. TELLEZ CATH DRAINING TO GRAVITY YELLOW URINE. MULTIPLE SCABS TO BLE AND WOUND TO RIGHT CALF DRESSING CLEAN AND INTACT. BILATERAL WRIST RESTRAINTS CHECKED FOR CIRCULATION WARMTH AND COLOR. NPO /OGT TO LOW INTERMITTENT SUCTION WITH DARK COFFEE GROUND COLOR OUTPUT. UBALDO IV #18 GAUGE RUNNING OCTREOTIDE @ 50 MCG/ MIN. RIGHT FEMORAL TRIPLE LUMEN RUNNING IVF TKO @ 10 ML/HR. NO S/S OF HYPER/HYPOGLYCEMIA REPOSITION FOR COMFORT. CONTACT ISOLATION FOR INFLUENZA B SAFETY AND ASPIRATION PRECAUTIONS IN PLACE BED IN LOW LOCKED POSITION WILL CONT TO MONITOR ACCORDINGLY
[2019-04-24] MEDS: OSELTAMIVIR PHOSPHATE 75 MG CAPSULE NG SCH ×2 (08:12→16:07)
[2019-04-24] MEDS: SILVER SULFADIAZINE 50 GM JAR TP SCH (08:12)
[2019-04-24] MEDS: VITAMINS A AND D 56.7 GM TUBE TP SCH ×2 (08:12→16:08)
[2019-04-24] MEDS: PANTOPRAZOLE 40 MG VIAL IV SCH ×2 (08:12→16:07)
[2019-04-24] MEDS: HEPARIN SODIUM, PORCINE 5000 UNITS/1 ML VIAL SQ SCH ×2 (08:13→21:52)
--- NOTE | 2019-04-24 08:37 | NUR ---
LAC IV # 18 GAUGE REMOVED D/T DISLODGED PRESSURE APPLIED MINIMAL BLEEDING
[2019-04-24] MEDS: POTASSIUM CL. PREMIX PERIPHER. 50 ML IV SCH ×4 (08:53→12:00)
--- NOTE | 2019-04-24 10:00 | NUR ---
PER MD JOHN ALLEN TO INCREASE PROPOFOL TO 100 MCG/MIN FOR SEDATION PATIENT PULLING AT LINES AND RESTLESS. PT IS KNOWN IV DRUG USER
--- NOTE | 2019-04-24 10:50 | NUR ---
UNABLE TO PLACE ON SEDATION VACATION . PT RESTLESS AND PULLING AT LINES AND TUBES
[2019-04-24] MEDS: IV NS 0.9% 250 ML IV PRN (11:08)
[2019-04-24] MEDS: VANCOMYCIN 1 GM in IV D5W 250 ML IV SCH (14:10)
[2019-04-24] MEDS: SOD FERRIC GLUC 125 MG in IV NS 0.9% 100 ML IV SCH (15:58)
[2019-04-24] MEDS ORDERED: LORAZEPAM INJ 2 MG/ML VIAL IV PRN (17:00)
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
--- NOTE | 2019-04-24 19:16 | NUR ---
MICROSTRATEGY ARCHITECT DEVELOPER NOTES PT REMAINED STABLE AND AFEBRILE THROUGHOUT SHIFT. TOLERATING VENT SETTINGS ORDERED. CURRENTLY SEDATED ON 60 MCG/MIN WITH LITTLE TO NO AGITATION. SINUS ON MONITOR WITH OCCASIONAL JUNCTIONAL RHYTHM AND DEPRESSED T WAVE. TELLEZ CATH DRAINING TO GRAVITY CLEAR YELLOW URINE. TX TO RIGHT CALF DONE AND BILATERAL FEET. PT REMAINS NPO WITH OGT TO INTERMITTENT SUCTION. RIGHT FEMORAL TRIPLE LUMEN PROPOFOL 60MCG/MIN AND NS @ 10 ML RUNNING, SANDOSTATIN @ 50MCG/HR FOR GI BLEED BILATERAL WRIST RESTRAINTS CHECKED FOR CIRCULATION SAFETY AND ISOLATION PRECAUTIONS IN PLACE BED IN LOW LOCKED POSITION REPOSITIONED FOR COMFORT.ALL NEEDS MET BY STAFF
--- NOTE | 2019-04-24 21:58 | NUR ---
Pt has become more agitated since given the Ativan , as ordered. Dr Vora. informed of same. Obtained order to administer Haldol 5 mg IVP'TIMES 1 now.
[2019-04-25] VITALS (65 sets, daily range): BP systolic 0–160; BP diastolic 56–116
[2019-04-25] MEDS: BLOOD SUGAR DIAGNOSTIC 1 EACH STRIP IN SCH ×4 (00:27→17:39)
[2019-04-25] MEDS: PROPOFOL 100 ML IV PRN ×2 (02:48→06:29)
[2019-04-25 04:59] LABS: BASOPHILS % (AUTO) 0.1 % (0.0-2.0); EOSINOPHILS % (AUTO) 0.3 % (0.0-6.0); HEMATOCRIT 31 % (33-45); HEMOGLOBIN 10.4 g/dL (11.5-14.8); LYMPHOCYTES # (AUTO) 1.2 /CMM (0.8-4.8); LYMPHOCYTES % (AUTO) 9.1 % (20.0-44.0); MEAN CORPUSCULAR HGB CONC 34 g/dl (31.0-36.0); MEAN CORPUSCULAR VOLUME 92 fL (82-100); MONOCYTES # (AUTO) 0.4 /CMM (0.1-1.30); MONOCYTES % (AUTO) 2.8 % (2.0-12.0); NEUTROPHILS # (AUTO) 11.8 /CMM (1.8-8.9); NEUTROPHILS % (AUTO) 87.7 % (43.0-81.0); PLATELET COUNT (AUTO) 386 /CMM (150-450); RED BLOOD CELL COUNT(AUTO) 3.33 MIL/uL (4.0-5.2); WHITE BLOOD COUNT (AUTO) 13.5 K/uL (4.3-11.0)
[2019-04-25 05:02] LABS: CALCIUM, SERUM 7.7 mg/dL (8.5-10.1); CREATININE 1.3 mg/dL (0.6-1.3); POTASSIUM 3.8 mmol/L (3.5-5.1)
[2019-04-25] MEDS ORDERED: CEFTRIAXONE 2 G in IV D5W 100 ML IV ONE (06:30)
--- NOTE | 2019-04-25 07:52 | NUR ---
TRAIN CONTROL TECHNICIAN OPENING NOTES RECEIVED REPORT FROM PM NURSE.PATIENT IN BED.INTUBATED WITH ETT 7.0/23@LIP LEVEL. TOLERATING VENT SETTINGS ORDERED. CURRENTLY SEDATED WITH PROPOFOL.RR 30.ON TELE MONITOR SINUS RHYTHM WITH HR 83 AND DEPRESSED T WAVE. TELLEZ CATH DRAINING TO GRAVITY CLEAR LIGHT GREEN URINE. NPO.RIGHT FEMORAL TRIPLE LUMEN CATH.INTACT AND PATENT. BILATERAL WRIST RESTRAINTS CHECKED FOR CIRCULATION. SAFETY AND ISOLATION PRECAUTIONS IN PLACE. BED IN LOW LOCKED POSITION .SRX3.BED ALARM ON.WILL CONTINUE TO MONITOR.
[2019-04-25] MEDS: PANTOPRAZOLE 40 MG VIAL IV SCH ×2 (08:53→17:39)
[2019-04-25] MEDS: VITAMINS A AND D 56.7 GM TUBE TP SCH ×2 (08:53→17:39)
[2019-04-25] MEDS: OSELTAMIVIR PHOSPHATE 75 MG CAPSULE NG SCH ×2 (08:53→17:39)
[2019-04-25] MEDS: HEPARIN SODIUM, PORCINE 5000 UNITS/1 ML VIAL SQ SCH ×2 (08:55→22:20)
[2019-04-25] MEDS: CEFTRIAXONE 2 G in IV D5W 100 ML IV SCH ×2 (09:09→22:20)
[2019-04-25] MEDS: SILVER SULFADIAZINE 50 GM JAR TP SCH (09:14)
--- NOTE | 2019-04-25 09:15 | NUR ---
NIGHT ORDER SELECTOR NOTE PATIENT STARTED ON WEANING TRIAL.PATIENT ALERT .OFF FROM PROPOFOL.FOLLOWING COMMANDS.WILL CONTINUE TO MONITOR.
[2019-04-25 09:56] LABS: ABG BASE EXCESS -2.6 mmol/L; ABG OXYGEN SATURATION 96.7 % (92.0-98.5); ABG PCO2 29.4 mmHg (35.0-45.0); ABG PH 7.457 (7.350-7.450); ABG PO2 86.6 mmHg (75.0-100.0); AaDO2 236.8 mmHg; COHb 0.3 % (0.5-1.5); MetHb 0.2 % (0.0-1.5); O2Hb 96.2 % (94.0-97.0); SITE, ABG Left Radial; VENT MODE, BG SIMV 4 550 PS15 +5 50%
[2019-04-25] MEDS ORDERED: DC PROPOFOL WHEN EXTUBATED XX PRN (10:00)
--- NOTE | 2019-04-25 11:15 | NUR ---
ICUR N NOTE REALYED ABG RESULT TO .NNO
--- NOTE | 2019-04-25 11:50 | NUR ---
ELECTRIC ACCOUNTING MACHINE OPERATOR NOTE SEEN BY .UPDATED ABOUT PATIENT CONDITION.PATIENT HAS TACHYPNEA.RR >45 NNO NOW.WILL MONITOR.
--- NOTE | 2019-04-25 12:00 | NUR ---
HAT BLOCK BENCH HAND NOTE PATIENT HAS TACHYPNEA.AGITATED.ON BILATERAL SOFT RESTRAINTS.AXOX1. MADE AWARE.OFF FROM PROPOFOL.NO PRN ATIVAN PER .WILL CONTINUE TO MONITOR CLOSELY.
--- NOTE | 2019-04-25 12:22 | NUR ---
TIE LAYER unable to assess pt. due to pt. being intubated at this time.
--- NOTE | 2019-04-25 13:09 | NUR ---
WRAPPER HANDS SPRAYER NOTE OK TO D/C SANDOSTATIN PER PER PHARMACY REQUEST.PATIENT H/H STABLE.GREENISH SECRETIONS FROM OG TUBE INTERMITTENT SUCTION.NO S/S OF GI BLEED NOTED.WILL CONTINUE TO MONITOR.
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
[2019-04-25] MEDS: SOD FERRIC GLUC 125 MG in IV NS 0.9% 100 ML IV SCH (14:02)
[2019-04-25 14:52] LABS: ABG BASE EXCESS -3.5 mmol/L; ABG OXYGEN SATURATION 98.3 % (92.0-98.5); ABG PCO2 23.2 mmHg (35.0-45.0); ABG PH 7.508 (7.350-7.450); ABG PO2 153.2 mmHg (75.0-100.0); AaDO2 392.8 mmHg; COHb 0.3 % (0.5-1.5); MetHb 0.5 % (0.0-1.5); O2Hb 97.5 % (94.0-97.0); SITE, ABG Right Radial; VENT MODE, BG HIGHFLOW 50LPM
--- NOTE | 2019-04-25 14:57 | NUR ---
SLUBBER RUNNER NOTE ABG DONE AN HOUR AFTER EXTUBATION.RELAYED RESULT TO .50% FIO2.RT MADE AWARE.ON HIGH FLOW O2.
--- NOTE | 2019-04-25 15:30 | NUR ---
ORTHOPEDIC SHOES SALESPERSON NOTE PATIENT IS AXOX1.COMFORTABLE IN BED.LETHARGIC.ON HIGH FLOW O2.SATURATING 92-94%.NO SOB NO DISTRESS NOTED.ON BILATERAL SOFT RESTRAINTS.VISUAL SAFETY CHECK DONE.NO INJURY .GOOD CIRCULATION.INCREASE MONITORING FOR PATIENT .RN SITTING JUST OUTSIDE PATIENT ROOM.FOLLOWS COMMANDS.WILL CONTINUE TO MONITOR.
--- NOTE | 2019-04-25 17:25 | NUR ---
ENGINE TESTING SUPERVISOR NOTE PATIENT COMFORTABLE IN BED.VSS.CLEAN THE PATIENT.AXOX1.PATIENT WAS THANKFUL ABOUT CARE PROVIDED.ON BILATERAL SOFT RESTRAINTS.WILL CONTINUE TO MONITOR.
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
--- NOTE | 2019-04-25 17:45 | NUR ---
SAFETY PIN ASSEMBLING MACHINE OPERATOR NOTE PATIENT COMFORTABLE IN BED.BED SIDE SWALLOW DONE.PATENT ABLE TO SWALLOW WATER AND ABLE TO TAKE SCHEDULED MEDICATIONS.ON BILATERAL SOFT RESTRAINTS.MONITORING PATIENT CLOSELY. RN SITTING OUTSIDE ROOM FOR CLOSE MONITORING.
--- NOTE | 2019-04-25 18:30 | NUR ---
MANAGER FIELD SERVICES NOTE PATIENT FOUND ON FLOOR WITH FACE DOWN.MINIMAL BLEEDING WITH HEMATOMA NOTED IN L FOREHEAD.PATIOENT ALETXOX1 WITH FOLLOWING COMMANDS.PATIENT HAS BILATERAL SOFT RESTRAINTS.PATIENT STATED SHE WAS TRYING TO REACH WATER.SHE WAS NPO . MADE AWARE.GOT NEW ORDER FOR NURO CHECK AND HEAD CT IF CHANGE IN LOC.WILL CONTINUE TO MONITOR..
--- NOTE | 2019-04-25 19:40 | NUR ---
FACILITY REHAB DIRECTOR CLOSED NOTE ENDORSED TO PM NURSE FOR [facility].PATIENT IS ALERT.MONITORING LOC.
[2019-04-26] VITALS (23 sets, daily range): BP systolic 125–150; BP diastolic 69–104
[2019-04-26] MEDS: BLOOD SUGAR DIAGNOSTIC 1 EACH STRIP IN SCH ×5 (00:30→23:24)
[2019-04-26 05:09] LABS: BASOPHILS % (AUTO) 0.3 % (0.0-2.0); EOSINOPHILS % (AUTO) 0.3 % (0.0-6.0); HEMATOCRIT 31 % (33-45); HEMOGLOBIN 10.4 g/dL (11.5-14.8); LYMPHOCYTES # (AUTO) 1.6 /CMM (0.8-4.8); LYMPHOCYTES % (AUTO) 12.5 % (20.0-44.0); MEAN CORPUSCULAR HGB CONC 34 g/dl (31.0-36.0); MEAN CORPUSCULAR VOLUME 93 fL (82-100); MONOCYTES # (AUTO) 0.5 /CMM (0.1-1.30); MONOCYTES % (AUTO) 3.8 % (2.0-12.0); NEUTROPHILS # (AUTO) 10.8 /CMM (1.8-8.9); NEUTROPHILS % (AUTO) 83.1 % (43.0-81.0); PLATELET COUNT (AUTO) 423 /CMM (150-450); RED BLOOD CELL COUNT(AUTO) 3.35 MIL/uL (4.0-5.2)
[2019-04-26 05:17] LABS: CALCIUM, SERUM 8.2 mg/dL (8.5-10.1); MAGNESIUM 2.2 mg/dL (1.8-2.4); POTASSIUM 3.2 mmol/L (3.5-5.1)
--- NOTE | 2019-04-26 07:00 | NUR ---
Received patient asleep on bed. On HFNC @ 10 LPM. F1O2 @ 57%. Not in respiratory distress. With soft restraints intact on both wrists, circulation, sensation and movement intact. Patient on SR in the 80's. No ectopic beats noted. Patient is NPO. Awaiting swallow evaluation today (post extubation). But Dr. Jose Segundo (Cardiac) consulted and ordered to try giving patient water and if patient can swallow without any problem will start cardiac diet.
--- NOTE | 2019-04-26 07:21 | NUR ---
NO ACUTE CHANGES NOTED IN PATIENT'S CONDITION. . NO NEURO DEFICIT NOTED DURING MY SHIFT. V/S ARE WNL. NO SOB, NO COMPLAINT OF PAIN DURING MY SHIFT. WILL ENDORCE TO AM RN FOR TECHNOLOGY OFFICER.
--- NOTE | 2019-04-26 08:00 | NUR ---
Patient was able to drink a cup of water without any difficulty. Cardiac diet ordered.
[2019-04-26] MEDS: CEFTRIAXONE 2 G in IV D5W 100 ML IV SCH (08:55)
--- NOTE | 2019-04-26 09:05 | NUR ---
HFNC changed to NC @ 5 LPM, FIO2 40%. Tolerating well @ 40%. No respiratory distress noted. Dr. Bahena and Dr. Nielsen making rounds are aware.
[2019-04-26] MEDS: OSELTAMIVIR PHOSPHATE 75 MG CAPSULE NG SCH ×2 (09:28→17:39)
[2019-04-26] MEDS: POTASSIUM CHLORIDE 20 MEQ TAB.PRT.SR PO SCH ×3 (09:28→12:19)
[2019-04-26] MEDS: PANTOPRAZOLE 40 MG TABLET.DR PO SCH (09:29)
[2019-04-26] MEDS: HEPARIN SODIUM, PORCINE 5000 UNITS/1 ML VIAL SQ SCH ×2 (09:30→21:22)
[2019-04-26 09:52] LABS: ABG BASE EXCESS -2.4 mmol/L; ABG OXYGEN SATURATION 90.1 % (92.0-98.5); ABG PCO2 32.4 mmHg (35.0-45.0); ABG PH 7.433 (7.350-7.450); ABG PO2 59.2 mmHg (75.0-100.0); AaDO2 188.7 mmHg; COHb 0.3 % (0.5-1.5); MetHb 0.6 % (0.0-1.5); O2Hb 89.3 % (94.0-97.0); SITE, ABG Right Radial; VENT MODE, BG Nasal Cannula
[2019-04-26] MEDS: VITAMINS A AND D 56.7 GM TUBE TP SCH ×2 (10:58→17:39)
[2019-04-26] MEDS: Z GUARD REMEDY 2 OZ OINT TP PRN (10:58)
[2019-04-26] MEDS: INSULIN REGULAR, HUMAN 100 UNIT/ML 3 ML VIAL SQ PRN ×2 (12:37→23:30)
[2019-04-26] MEDS: SILVER SULFADIAZINE 50 GM JAR TP SCH (12:39)
[2019-04-26] MEDS: Potassium Chloride 40 MEQ in IV D5W 1,000 ML IV PRN (14:25)
[2019-04-26] MEDS: SOD FERRIC GLUC 125 MG in IV NS 0.9% 100 ML IV SCH (14:30)
--- NOTE | 2019-04-26 16:09 | NUR ---
RN NOTE RECEIVED REPORT FROM ANNI, COTTON HEADER.
[2019-04-26 16:32] LABS: ABG BASE EXCESS -1.8 mmol/L; ABG OXYGEN SATURATION 94.5 % (92.0-98.5); ABG PCO2 28.7 mmHg (35.0-45.0); ABG PH 7.479 (7.350-7.450); ABG PO2 73.8 mmHg (75.0-100.0); AaDO2 120.8 mmHg; COHb 0.3 % (0.5-1.5); MetHb 0.3 % (0.0-1.5); O2Hb 93.9 % (94.0-97.0); SITE, ABG Right Radial; VENT MODE, BG Nasal Cannula
--- NOTE | 2019-04-26 16:40 | NUR ---
Patient transferred to Telemetry/JAD. Report given to Lillian Galaviz RN.
--- NOTE | 2019-04-26 18:51 | NUR ---
RN CLOSING NOTE PATIENT IN BED, FRIENDS AT BEDSIDE. PATIENT SAYING "I WANT DRUGS". ON 5L NC, SATING WELL AT 94%. S/P EXTUBATION TODAY. HAS TELLEZ CATH WITH CLEAR AND YELLOW URINE. HAS A LEFT FOREHEAD BUMP S/P FALL YESTERDAY. ON BILATERAL RESTRAINTS TO BE RENEWED AT 1200 MIDNIGHT. HAS TRIPLE LUMEN ON FEMORAL WITH D5W KCL AT 50 ML/HR. BED LOCKED AND IN LOWEST POSITION. CALL LIGHT WITHIN REACH. WILL ENDORSE TO NOC SHIFT FOR LAMONT
--- NOTE | 2019-04-26 20:00 | NUR ---
RN NOTES PATIENT IN BED, ALERT AND ORIENTED X2, NO DISTRESS, TOLERATING 5LPM VIA NC, NO COMPLAIN OF PAIN AT THIS TIME, COOPERATIVE, BILATERAL WRISTS RESTRAINTS DUE TO AGITATION AND PULLING OUT OF IV LINE, TELLEZ CATHETER DRAINING WELL, TRIPLE LUMEN CATH INTACT AND PATENT, FAMILY MEMBERS AT THE BEDSIDE, WILL CONTINUE TO MONITOR
--- NOTE | 2019-04-26 23:30 | NUR ---
bg 107 mg/dl, no insulin given
[2019-04-27] VITALS: BP 139/81
[2019-04-27] MEDS: ACETAMINOPHEN 325 MG TABLET PO PRN (03:47)
[2019-04-27 04:00] VITALS: BP 150/86
[2019-04-27] MEDS: BLOOD SUGAR DIAGNOSTIC 1 EACH STRIP IN SCH ×4 (05:57→23:45)
--- NOTE | 2019-04-27 06:08 | NUR ---
RN NOTES PATIENT ALERT AND ORIENTED X2, ON ROOM AIR, WITH EPISODES OF CONFUSION, CALM AND COOPERATIVE MOST OF THE SHIFT, AT 0400, COMPLAINING OF BEING COLD AND HEADACHE, GIVEN WARM BLANKET AND TYLENOL. PATIENT SCREAMING AND YELLING, OFFERED FLUIDS, VS TAKEN, WNL, TEMP 97.8F ORALLY. TELLEZ CATHETER DRAINING WELL WITH GREENISH URINE. FOLLOW UP PSYCH CONSULT, CONTINUE NEURO CHECKS, NOTIFY MD IF CHANGES IN LOC, NO CT OF HEAD DONE AFTER FALL.
[2019-04-27] MEDS: INSULIN REGULAR, HUMAN 100 UNIT/ML 3 ML VIAL SQ PRN (06:28)
--- NOTE | 2019-04-27 06:30 | NUR ---
BG 116 MG/DL, NO INSULIN GIVEN
--- NOTE | 2019-04-27 07:10 | NUR ---
RN OPENING NOTE: PATIENT IN BED. AWAKE, ALERT AND ORIENTED X3. ON 5L NC, SATURATING AND TOLERATING WELL. >92%. ON AIRBORNE ISOLATION, STAFF AWARE AND COMPLIANCE MONITORED. HAS TELLEZ CATH WITH CLEAR AND YELLOW URINE. HAS A LEFT FOREHEAD BUMP S/P FALL DURING ICU STAY. ON BILATERAL RESTRAINTS FOR BEHAVIOR IDENTIFIED. HAS TRIPLE LUMEN ON FEMORAL WITH D5W KCL AT 50 ML/HR, INFUSING BEING TOLERATED WELL. SITE CLEAN, DRY AND PATENT. ON CARDIAC MONITORING WITH SINUS RHYTHM NOTED. BED LOCKED, AT SEMI-CALVERT'S AND IN LOWEST POSITION. CALL LIGHT WITHIN REACH. WILL CONTINUE TO MONITOR.
[2019-04-27 08:00] VITALS: BP 156/100
[2019-04-27] MEDS: VITAMINS A AND D 56.7 GM TUBE TP SCH ×2 (09:00→17:00)
[2019-04-27] MEDS: SILVER SULFADIAZINE 50 GM JAR TP SCH (09:00)
[2019-04-27] MEDS: OSELTAMIVIR PHOSPHATE 75 MG CAPSULE NG SCH ×2 (09:38→17:21)
[2019-04-27] MEDS: HEPARIN SODIUM, PORCINE 5000 UNITS/1 ML VIAL SQ SCH ×2 (09:39→20:24)
[2019-04-27] MEDS: PANTOPRAZOLE 40 MG TABLET.DR PO SCH (09:39)
[2019-04-27] MEDS: CEFTRIAXONE 2 G in IV D5W 100 ML IV SCH (09:40)
--- NOTE | 2019-04-27 11:36 | NUR ---
RN NOTE: SPOKE TO DR. LOPEZ WITH REGARDS TO PENDING RESULTS FOR PATIENT'S HIV PANEL. INFORMED THAT TURN AROUND WOULD BE AROUND 4-5 DAYS AND THAT SAMPLE WAS TAKEN ON 04/24/19. ACKNOWLEDGED INFORMATION
[2019-04-27] MEDS: Potassium Chloride 40 MEQ in IV D5W 1,000 ML IV PRN (14:11)
[2019-04-27] MEDS: SOD FERRIC GLUC 125 MG in IV NS 0.9% 100 ML IV SCH (14:54)
[2019-04-27 16:00] VITALS: BP 139/84
--- NOTE | 2019-04-27 19:05 | NUR ---
RN OPENING NOTE RECEIVED PATIENT IN BED RESTING WITH HOB ELEVATED. WATCHING TV. BREATHING EVEN AND NON LABORED, NO SOB NOTED. ON O2 4 LPM VIA NC. ON BILATERAL SOFT WRIST RESTRAINTS. IN NO APPARENT DISTRESS NOTED. BED IS LOWERED AND LOCKED FOR SAFETY. CALL LIGHT IS WITHIN REACH. WILL CONTINUE TO MONITOR.
--- NOTE | 2019-04-27 19:15 | NUR ---
RN CLOSING NOTE: PATIENT STILL IN BED. AWAKE, ALERT AND ORIENTED X3. ON 4L NC, SATURATING AND TOLERATING WELL. >92%. ON AIRBORNE ISOLATION, STAFF AWARE AND COMPLIANCE MONITORED. HAS TELLEZ CATH WITH CLEAR AND YELLOW URINE. HAS A LEFT FOREHEAD BUMP S/P FALL DURING ICU STAY. ON BILATERAL RESTRAINTS FOR BEHAVIOR IDENTIFIED. HAS TRIPLE LUMEN ON FEMORAL WITH D5W KCL AT 50 ML/HR, INFUSING BEING TOLERATED WELL. SITE CLEAN, DRY AND PATENT. NO PAIN NOTED OR REPORTED BY PATIENT. BED LOCKED, AT SEMI-CALVERT'S AND IN LOWEST POSITION. CALL LIGHT WITHIN REACH. ENDORSED TO ONCOMING SHIFT FOR LAMONT.
[2019-04-27 20:00] VITALS: BP 140/89
[2019-04-28] VITALS: BP 141/78
[2019-04-28] MEDS: BLOOD SUGAR DIAGNOSTIC 1 EACH STRIP IN SCH ×4 (05:29→23:54)
[2019-04-28 06:03] LABS: BASOPHILS % (AUTO) 0.2 % (0.0-2.0); EOSINOPHILS % (AUTO) 0.8 % (0.0-6.0); HEMATOCRIT 36 % (33-45); HEMOGLOBIN 12.3 g/dL (11.5-14.8); LYMPHOCYTES # (AUTO) 1.9 /CMM (0.8-4.8); LYMPHOCYTES % (AUTO) 14.6 % (20.0-44.0); MEAN CORPUSCULAR HGB CONC 34 g/dl (31.0-36.0); MEAN CORPUSCULAR VOLUME 92 fL (82-100); MONOCYTES # (AUTO) 0.7 /CMM (0.1-1.30); MONOCYTES % (AUTO) 5.6 % (2.0-12.0); NEUTROPHILS # (AUTO) 10.1 /CMM (1.8-8.9); NEUTROPHILS % (AUTO) 78.8 % (43.0-81.0); PLATELET COUNT (AUTO) 538 /CMM (150-450); RED BLOOD CELL COUNT(AUTO) 3.89 MIL/uL (4.0-5.2); WHITE BLOOD COUNT (AUTO) 12.9 K/uL (4.3-11.0)
[2019-04-28 06:45] LABS: CALCIUM, SERUM 8.6 mg/dL (8.5-10.1); CREATININE 0.7 mg/dL (0.6-1.3)
--- NOTE | 2019-04-28 07:00 | NUR ---
RN CLOSING NOTE PATIENT IS IN BED RESTING WITH HOB ELEVATED. BREATHING IS EVEN AND NON LABORED. NO SOB NOTED AT THIS TIME. ABLE TO MAKE NEEDS KNOWN. ON O2 4 LPM VIA NC. IN NO APPARENT DISTRESS NOTED. DUE MEDS GIVEN AND TOLERATED WELL. PATIENT IS KEPT CLEAN, DRY, AND COMFORTABLE. CALL LIGHT IS WITHIN REACH. BED IS LOWERED TO LOWEST POSITION AND LOCKED FOR SAFETY. WILL ENDORSE TO AM SHIFT RN.
--- NOTE | 2019-04-28 07:30 | NUR ---
RN OPENING NOTES RECEIVED PATIENT FROM CHARGING MANIPULATOR NURSE. IN STABLE CONDITION, AOX 2, OCCASIONALLY CONFUSED. PATIENT IS NO LONGER ON RESTRAINTS, BEING MONITORED CLOSELY. PATIENT IS ON TELE MONITOR, SINUS RHYTHM, HR AT 91. NO SIGNS AND SYMPTOMS OF RESPIRATORY DISTRESS NOTED. TELLEZ IS INTACT, DRAINING CLEAR YELLOW URINE. SAFETY IS MAINTAINED, CALL LIGHT WITHIN REACH, BED ALARM IS ON. WILL CONTINUE TO MONITOR.
[2019-04-28 07:37] LABS: BAND % (MANUAL) 6 % (0.0-5.0); LYMPHOCYTES % (MANUAL) 15 % (16-48); NEUTROPHILS % (MANUAL) 65 (42-76)
[2019-04-28 07:38] LABS: METAMYELOCYTES % 5 % (0-0); MONOCYTES % (MANUAL) 2 % (0-11.0); MYELOCYTES % 7 % (0-0)
[2019-04-28 08:00] VITALS: BP 160/90
[2019-04-28] MEDS: CEFTRIAXONE 2 G in IV D5W 100 ML IV SCH (08:48)
[2019-04-28] MEDS: DIVALPROEX SODIUM 250 MG TABLET.DR PO SCH ×2 (08:49→16:54)
[2019-04-28] MEDS: PANTOPRAZOLE 40 MG TABLET.DR PO SCH (08:49)
[2019-04-28] MEDS: OSELTAMIVIR PHOSPHATE 75 MG CAPSULE NG SCH ×2 (08:49→16:54)
[2019-04-28] MEDS: Z GUARD REMEDY 2 OZ OINT TP PRN (08:50)
[2019-04-28] MEDS: VITAMINS A AND D 56.7 GM TUBE TP SCH ×2 (08:50→16:54)
[2019-04-28] MEDS: SILVER SULFADIAZINE 50 GM JAR TP SCH (08:51)
[2019-04-28] MEDS: HEPARIN SODIUM, PORCINE 5000 UNITS/1 ML VIAL SQ SCH ×2 (08:56→20:43)
[2019-04-28 12:00] VITALS: BP_SYST 134; BP_SYST 160; BP_DIAS 90; BP_DIAS 99
[2019-04-28] MEDS: ACETAMINOPHEN 325 MG TABLET PO PRN (14:37)
--- NOTE | 2019-04-28 15:12 | NUR ---
Social Service consult requested by Dr. Stroud for homelessness. Upon chart review and MD notes, pt is a 59-year-old female with past medical history of non-Hodgkin's lymphoma, hypothyroidism, and bilateral lower extremity edema, who brought herself to the ER on 04/22/2019 for evaluation of cough and stuffy nose x6 days. She also endorsed fever, body aches, myalgias, arthralgias, and nausea and vomiting as well. In the ER, her shortness of breath and respiratory failure became progressively worse and was intubated. Pt. is no longer intubated. EVIDENCE SPECIALIST met with the pt bedside. EVIDENCE SPECIALIST explained her role and pt. agreed to speak with EVIDENCE SPECIALIST. Pt is alert and oriented x 3. Pt states she lives in an RV. However, pt reported, that she no longer knows where her RV is located. Pt. appears disheveled and unkempt. In the middle of the assessment, pt' s starts yelling and stating she is in pain. EVIDENCE SPECIALIST spoke with pt's RN Norman, who informed EVIDENCE SPECIALIST that pt. continues to yell when she wants pain medication. Pt. is pain med seeking. Pt's toxicology screen in positive for methamphetamines, benzos and opiates. EVIDENCE SPECIALIST to reconvene with assessment tomorrow due to pt. yelling and not being as cooperative with the assessment.
--- NOTE | 2019-04-28 15:53 | NUR ---
PATIENT PULLED OUT HER TELLEZ. ATTEMPTED TO CALL DR LOPEZ, NO ONE ANSWERED THE PHONE. WILL CALL AGAIN
[2019-04-28 16:00] VITALS: BP_SYST 103; BP_SYST 137; BP_DIAS 63; BP_DIAS 87
--- NOTE | 2019-04-28 19:10 | NUR ---
RN OPENING NOTE RECEIVED PATIENT IN BED RESTING WITH HOB ELEVATED. WATCHING TV. A&O X2. BREATHING IS EVEN AND NON-LABORED. NO SOB NOTED. ABLE TO MAKE NEEDS KNOWN. CALL LIGHT IS WITHIN EASY REACH. BED IS LOWERED AND LOCKED FOR SAFETY. WILL CONTINUE TO MONITOR.
[2019-04-28 20:00] VITALS: BP 139/84
--- NOTE | 2019-04-28 20:03 | NUR ---
RN CLOSING NOTES PATIENT IS IN BED RESTING. BREATHING IS EVEN AND UNLABORED NOTED AT THIS TIME. ON 4L OXYGEN VIA NASAL CANULA. SATURATING WELL IN THE 90S. ABLE TO MAKE NEEDS KNOWN. PULLED OUT TELLEZ EARLIER TODAY, SPOKE TO THE DR, TELLEZ IS NO LONGER NECESSARY, ENDORSED TO PEANUT BLANCHER NURSE TO DISCONTINUE TELLEZ. SCHEDULED MEDS WERE GIVEN, TOLERATED WELL. PATIENT KEPT CLEAN AND DRY, CALL LIGHT WITHIN REACH, SAFETY MAINTAINED, ENDORSED TO PEANUT BLANCHER NURSE TO CONTINUE CARE.
[2019-04-29] VITALS: BP 139/84
[2019-04-29] MEDS: ACETAMINOPHEN 325 MG TABLET PO PRN ×2 (04:38→22:00)
[2019-04-29 04:56] VITALS: BP 124/80
[2019-04-29] MEDS: BLOOD SUGAR DIAGNOSTIC 1 EACH STRIP IN SCH ×4 (05:19→23:50)
[2019-04-29 06:29] LABS: BASOPHILS % (AUTO) 0.2 % (0.0-2.0); EOSINOPHILS % (AUTO) 0.7 % (0.0-6.0); HEMATOCRIT 40 % (33-45); HEMOGLOBIN 13.4 g/dL (11.5-14.8); LYMPHOCYTES # (AUTO) 2.2 /CMM (0.8-4.8); LYMPHOCYTES % (AUTO) 16.5 % (20.0-44.0); MEAN CORPUSCULAR HGB CONC 33 g/dl (31.0-36.0); MEAN CORPUSCULAR VOLUME 94 fL (82-100); MONOCYTES # (AUTO) 0.8 /CMM (0.1-1.30); MONOCYTES % (AUTO) 5.9 % (2.0-12.0); NEUTROPHILS # (AUTO) 10.1 /CMM (1.8-8.9); NEUTROPHILS % (AUTO) 76.7 % (43.0-81.0); PLATELET COUNT (AUTO) 578 /CMM (150-450); RED BLOOD CELL COUNT(AUTO) 4.31 MIL/uL (4.0-5.2); WHITE BLOOD COUNT (AUTO) 13.1 K/uL (4.3-11.0)
[2019-04-29 06:49] LABS: CALCIUM, SERUM 9.1 mg/dL (8.5-10.1); CREATININE 0.8 mg/dL (0.6-1.3); POTASSIUM 4.3 mmol/L (3.5-5.1)
[2019-04-29 07:23] LABS: LYMPHOCYTES % (MANUAL) 17 % (16-48); MONOCYTES % (MANUAL) 4 % (0-11.0); NEUTROPHILS % (MANUAL) 79 (42-76)
--- NOTE | 2019-04-29 07:25 | NUR ---
MS/RN OPENING NOTES RECEIVED PATIENT IN BED SLEEPING COMFORTABLY. EASILY AROUSABLE. NO PAIN OR ACUTE DISTRESS AT THIS TIME. RESPIRATION EVEN AND UNLABORED. SKIN IS DRY WARM TO TOUCH. PATIENT IS ALERT AND ORIENTED X2. ABLE TO MAKE NEEDS KNOWN. IV ACCESS INTACT AND PATENT. FLUSHING WELL. ALL NEEDS ANTICIPATED. CALL LIGHT WITHIN REACHED. BED LOCKED AND IN LOWEST POSITION. SAFETY MAINTAINED. PLAN OF CARE DISCUSSED WITH PATIENT. WILL CONTINUE TO MONITOR CLOSELY.
--- NOTE | 2019-04-29 07:30 | NUR ---
RN CLOSING NOTE PATIENT IS IN BED RESTING. BREATHING IS EVEN AND NON LABORED. IN NO APPARENT DISTRESS NOTED AT THIS TIME. CONFUSED. ABLE TO MAKE NEEDS KNOWN. BED IS LOWERED AND LOCKED FOR SAFETY. BED ALARM ON. CALL LIGHT IS WITHIN REACH. ENDORSED TO ALONSO CHAMBERS FOR CONTINUATION OF CARE.
[2019-04-29 08:00] VITALS: BP 126/95
[2019-04-29] MEDS: VITAMINS A AND D 56.7 GM TUBE TP SCH ×2 (08:28→16:47)
[2019-04-29] MEDS: CEFTRIAXONE 2 G in IV D5W 100 ML IV SCH (08:28)
[2019-04-29] MEDS: PANTOPRAZOLE 40 MG TABLET.DR PO SCH (08:28)
[2019-04-29] MEDS: OSELTAMIVIR PHOSPHATE 75 MG CAPSULE NG SCH ×2 (08:28→16:46)
[2019-04-29] MEDS: DIVALPROEX SODIUM 250 MG TABLET.DR PO SCH ×2 (08:28→16:46)
[2019-04-29] MEDS: SILVER SULFADIAZINE 50 GM JAR TP SCH (08:29)
[2019-04-29] MEDS: IV NS 0.9% 250 ML IV PRN (08:39)
[2019-04-29] MEDS: HEPARIN SODIUM, PORCINE 5000 UNITS/1 ML VIAL SQ SCH ×2 (08:44→21:29)
[2019-04-29 16:00] VITALS: BP_SYST 115; BP_SYST 125; BP_DIAS 51; BP_DIAS 67
--- NOTE | 2019-04-29 19:10 | NUR ---
MS RN NOTE RECEIVED PT IN STABLE CONDITION, A/O X2, NOTED WITH GUESTS AT BEDSIDE. NO SIGNS OF SOB OR DISTRESS, NO C/O PAIN. R FEMORAL TRIPLE LUMEN INTACT AND IN PLACE TKO. ALL CURRENT NEEDS ATTENDED TO. BED LOW, LOCKED, UPPER RAILS UP, ISOLATION PRECAUTION IN PLACE, AND CALL LIGHT WITHIN REACH. WILL CONT. TO MONITOR.
--- NOTE | 2019-04-29 19:17 | NUR ---
MS/RN CLOSING NOTES PATIENT CONTINUES TO REMAIN IN STABLE CONDITION THROUGHOUT THE SHIFT. PROVIDED COMFORT AND SAFETY. NO PAIN OR ACUTE DISTRESS AT THIS TIME. RESPIRATION EVEN AND UNLABORED. SKIN IS DRY WARM TO TOUCH. IV ACCESS INTACT AND PATENT. FLUSHING WELL. NO S/S OF INFECTION OR INFILTRATION. ABLE TO MAKE NEEDS KNOWN. ALL NEEDS ANTICIPATED. CALL LIGHT WITHIN REACHED. BED LOCKED AND IN LOWEST POSITION. SAFETY MAINTAINED. WILL CONTINUE TO MONITOR CLOSELY. ENDORSED TO PM NURSE FOR LAMONT.
[2019-04-30 04:00] VITALS: BP 110/68
[2019-04-30] MEDS: ACETAMINOPHEN 325 MG TABLET PO PRN (04:01)
[2019-04-30] MEDS: BLOOD SUGAR DIAGNOSTIC 1 EACH STRIP IN SCH ×4 (06:07→23:29)
--- NOTE | 2019-04-30 06:17 | NUR ---
MS RN NOTE PT REMAINS IN STABLE CONDITION, A/O X2, NOTED RESTING IN BED. NO SIGNS OF SOB OR DISTRESS, NO C/O PAIN. R FEMORAL TRIPLE LUMEN INTACT AND IN PLACE. ALL CURRENT NEEDS ATTENDED TO. BED LOW, LOCKED, UPPER RAILS UP, ISOLATION PRECAUTIONS IN PLACE, AND CALL LIGHT WITHIN REACH. WILL CONT. TO MONITOR AND ENDORSE TO NEXT SHIFT FOR LAMONT.
[2019-04-30 06:26] LABS: BASOPHILS # (AUTO) 0.1 /CMM (0.0-0.2); BASOPHILS % (AUTO) 0.5 % (0.0-2.0); EOSINOPHILS % (AUTO) 0.6 % (0.0-6.0); HEMATOCRIT 41 % (33-45); HEMOGLOBIN 13.9 g/dL (11.5-14.8); LYMPHOCYTES # (AUTO) 2.3 /CMM (0.8-4.8); LYMPHOCYTES % (AUTO) 19.7 % (20.0-44.0); MEAN CORPUSCULAR HGB CONC 34 g/dl (31.0-36.0); MEAN CORPUSCULAR VOLUME 92 fL (82-100); MONOCYTES # (AUTO) 0.8 /CMM (0.1-1.30); MONOCYTES % (AUTO) 7.2 % (2.0-12.0); NEUTROPHILS # (AUTO) 8.3 /CMM (1.8-8.9); PLATELET COUNT (AUTO) 543 /CMM (150-450); RED BLOOD CELL COUNT(AUTO) 4.45 MIL/uL (4.0-5.2); WHITE BLOOD COUNT (AUTO) 11.6 K/uL (4.3-11.0)
[2019-04-30 08:00] VITALS: BP 122/89
[2019-04-30] MEDS: CEFTRIAXONE 2 G in IV D5W 100 ML IV SCH (10:12)
[2019-04-30] MEDS: OSELTAMIVIR PHOSPHATE 75 MG CAPSULE NG SCH ×2 (10:12→17:52)
[2019-04-30] MEDS: PANTOPRAZOLE 40 MG TABLET.DR PO SCH (10:13)
[2019-04-30] MEDS: DIVALPROEX SODIUM 250 MG TABLET.DR PO SCH ×2 (10:13→17:52)
[2019-04-30] MEDS: VITAMINS A AND D 56.7 GM TUBE TP SCH ×2 (11:32→17:53)
[2019-04-30] MEDS: SILVER SULFADIAZINE 50 GM JAR TP SCH (11:32)
[2019-04-30 15:09] LABS: CALCIUM, SERUM 9.1 mg/dL (8.5-10.1); PHOSPHORUS 3.5 mg/dL (2.5-4.9); POTASSIUM 3.9 mmol/L (3.5-5.1)
[2019-04-30 16:00] VITALS: BP 114/71
--- NOTE | 2019-04-30 18:00 | NUR ---
RECEIVED PT. ALERT AND ORIENTED X2.VS STABLE.GETTING OOB PERIODICALLY AND COMING OUT OF RM. ALTHOUGH IN ISOLATION.CHRISTELLE PAZ WELL DR. DÍAZ IN TO SEE PT.SEVERAL EPISODES OF THRASHING ARMS AND CALLING OUT INCOHERENT VERBAGES.
--- NOTE | 2019-04-30 19:25 | NUR ---
MS RN OPENING NOTES RECEIVED PATIENT IN BED FROM MORNING SHIFT ALERT AND ORIENTED X 2-3. VERBALLY RESPONSIVE AND ABLE TO FOLLOW DIRECTIONS. BREATHING REGULAR AND UNLABORED ON ROOM AIR. RIGHT FEMORAL TRIPLE LUMEN CATH INTACT AND PATENT, FLUSHING WELL WITH NO BLEEDING OR S/S OF INFECTION NOTED. BODY ASSESSMENT DONE, SEEN WITH MULTIPLE DRY SCABS BUT SKIN REMAINED INTACT, CLEAN AND DRY. NO COMPLAINTS OF PAIN/DISCOMFORT REPORTED OF THE TIME. BED LOW AND LOCKED ON SEMI FOWLERS POSITION. CALL LIGHT IN REACH. WILL CONTINUE TO MONITOR.
[2019-04-30 20:00] VITALS: BP 116/81
[2019-04-30] MEDS: INSULIN REGULAR, HUMAN 100 UNIT/ML 3 ML VIAL SQ PRN (23:29)
--- NOTE | 2019-04-30 23:30 | NUR ---
MS RN NOTES BS 91mg/dl, NO INSULIN COVERAGE NEEDED. SNACKS PROVIDED ON BEDSIDE. WILL CONTINUE TO MONITOR.
[2019-05-01 04:00] VITALS: BP 115/78
[2019-05-01] MEDS: BLOOD SUGAR DIAGNOSTIC 1 EACH STRIP IN SCH ×3 (05:28→18:05)
[2019-05-01] MEDS: INSULIN REGULAR, HUMAN 100 UNIT/ML 3 ML VIAL SQ PRN (05:28)
--- NOTE | 2019-05-01 06:00 | NUR ---
MS RN NOTES BS 95mg/dl, NO INSULIN COVERAGE NEEDED. SNACKS PROVIDED ON BEDSIDE. WILL CONTINUE TO MONITOR.
--- NOTE | 2019-05-01 06:20 | NUR ---
MS RN CLOSING NOTES PATIENT IN BED ALERT AND ORIENTED X 2-3. VERBALLY RESPONSIVE AND ABLE TO FOLLOW DIRECTIONS. BREATHING REGULAR AND UNLABORED ON ROOM AIR. RIGHT FEMORAL TRIPLE LUMEN CATH INTACT AND FLUSHING WELL. NO COMPLAINTS OF PAIN/DISCOMFORT REPORTED THE WHOLE SHIFT. MAINTAINED ON DROPLET ISOLATION FOR INFLUENZA. PROPER HAND WASHING AND ISOLATION PRECAUTION OBSERVED. BED LOW AND LOCKED ON SEMI FOWLERS POSITION. CALL LIGHT IN REACH. WILL ENDORSE TO MORNING SHIFT FOR LAMONT.
[2019-05-01 08:00] VITALS: BP 118/77
[2019-05-01] MEDS: CEFTRIAXONE 2 G in IV D5W 100 ML IV SCH (08:41)
[2019-05-01] MEDS: OSELTAMIVIR PHOSPHATE 75 MG CAPSULE NG SCH (08:41)
[2019-05-01] MEDS: PANTOPRAZOLE 40 MG TABLET.DR PO SCH (08:42)
[2019-05-01] MEDS: DIVALPROEX SODIUM 250 MG TABLET.DR PO SCH ×2 (08:42→18:01)
[2019-05-01] MEDS: VITAMINS A AND D 56.7 GM TUBE TP SCH ×2 (08:53→18:01)
[2019-05-01] MEDS: SILVER SULFADIAZINE 50 GM JAR TP SCH (08:53)
[2019-05-01] MEDS ORDERED: ACET325T53 PO (11:33)
[2019-05-01] MEDS ORDERED: DIVA250T4 PO (11:33)
--- NOTE | 2019-05-01 13:30 | NUR ---
Patient says she feels down and anxious. Denies SI/HI. Will continue to monitor for needs with regard to adl's. Says her stomach is upset. Discussion regarding side effects of medication as possible upset stomach. Patient verbalizes understanding. Reginaldo Perrin RN
--- NOTE | 2019-05-01 15:25 | NUR ---
Patient refuses pictures of bilateral legs, right lateral leg, sacrum and bilateral thighs. Reginaldo Perrin RN
[2019-05-01 16:00] VITALS: BP 137/61
[2019-05-01 20:00] VITALS: BP 104/72
--- NOTE | 2019-05-01 20:45 | NUR ---
MS-1/TEST ANALYST RIGHT FEMORAL TRIPLE LUMEN CATH REMOVED BY NATHAN CHAMBERS PRESSURE APPLIED FOR 10 MINS NO BLEEDING NOTED. PRESSURE DRESSING APPLIED. PT TOLERATED WELL. WILL CONTINUE TO MONITOR FOR ACUTE BLEEDING.
--- NOTE | 2019-05-01 21:12 | NUR ---
MS-1/CORE STRIPPER DISCHARGE INSTRUCTION GIVEN TO PT. PT VERBALIZED UNDERSTANDING AND SIGNED DISCHARGE PAPERWORK. DISCHARGE MEDICATION INSTRUCTION GIVEN TO PT. PT VERBALIZED UNDERSTANDING. PT ADVISED TO FOLLOW UP WITH PRIMARY MD WITHIN THE NEXT 3 DAYS. PT VERBALIZED UNDERSTANDING. PT EDUCATED IF SHE HAS ANY SYMPTOMS OF SHORTNESS OF BREATH TO RETURN TO THE EMERGENCY ROOM FOR TREATMENT. PT VERBALIZED UNDERSTANDING. PT WILL TAKE A TAXI HOME WITH HOSPITAL PROVIDED TAXI VOUCHER. PT SAID HER BOYFRIEND IS AT THE ADDRESS TO LET HER IN. GANG LEADER IS HELPING PT GET DRESSED WILL CONTINUE TO MONITOR.
--- NOTE | 2019-05-01 21:23 | NUR ---
MS-1/GELY PT WHEELED OUT TO FROM [facility] BY CHAPIN CHATMAN. HELPED INTO TAXI AND PROVIDED TAXI VOUCHER.
[2019-05-02 11:11] LABS: *HIV-1 RNA BY PCR <20 copies/mL (.)
== END 2019-05-01 21:20 | disposition home or self-care (01) | DRG 720 ==
LOC: ER 23:37 → TELE 04-22 03:13 → ICU 04-22 06:57 → TELE-TD 04-26 16:45 → TELE1 04-27 16:52 → MEDSG1 04-28 08:12
PROVIDERS: ADMIT Registered Nurse
PROC: 5A1945Z Respiratory Ventilation, 24-96 Consecutive Hours (ICD-10-PCS; principal; 2019-04-22)
PROC: 0BH17EZ Insertion of Endotracheal Airway into Trachea, Via Natural or Artificial Opening (ICD-10-PCS; principal; 2019-04-22)
PROC: B548ZZA Ultrasonography of Superior Vena Cava, Guidance (ICD-10-PCS; principal; 2019-04-22)
PROC: 02HV33Z Insertion of Infusion Device into Superior Vena Cava, Percutaneous Approach (ICD-10-PCS; principal; 2019-04-22)
DX: A41.9 Sepsis, unspecified organism (principal); N17.0 Acute kidney failure with tubular necrosis; J10.08 Influenza due to other identified influenza virus with other specified pneumonia; J15.6 Pneumonia due to other Gram-negative bacteria; R65.21 Severe sepsis with septic shock; J96.01 Acute respiratory failure with hypoxia; J96.02 Acute respiratory failure with hypercapnia; G92 Toxic encephalopathy; I50.9 Heart failure, unspecified; C85.90 Non-Hodgkin lymphoma, unspecified, unspecified site; E87.2 Acidosis; F41.9 Anxiety disorder, unspecified; E03.9 Hypothyroidism, unspecified; E87.6 Hypokalemia; J44.9 Chronic obstructive pulmonary disease, unspecified; E83.42 Hypomagnesemia; Z59.0 Homelessness; F17.200 Nicotine dependence, unspecified, uncomplicated; E87.0 Hyperosmolality and hypernatremia; L85.3 Xerosis cutis; Z91.19 Patient's noncompliance with other medical treatment and regimen; F11.90 Opioid use, unspecified, uncomplicated; K44.9 Diaphragmatic hernia without obstruction or gangrene; I73.9 Peripheral vascular disease, unspecified; D50.9 Iron deficiency anemia, unspecified; R91.8 Other nonspecific abnormal finding of lung field; J44.0 Chronic obstructive pulmonary disease with (acute) lower respiratory infection; E86.0 Dehydration; I95.9 Hypotension, unspecified; L97.819 Non-pressure chronic ulcer of other part of right lower leg with unspecified severity; F05 Delirium due to known physiological condition; K59.00 Constipation, unspecified; L03.115 Cellulitis of right lower limb
CPT/HCPCS: 31720; 36415; 36600; 71045-TC; 71250-TC; 74018; 80048-TC; 80053-TC; 80061-TC; 80076-TC; 80202-TC; 80305; 81000-TC; 82728-TC; 82803-TC; 82962-TC; 83540-TC; 83605-TC; 83735-TC; 83880; 84100-TC; 84155; 84165; 84439-TC; 84443-TC; 84484-TC; 85025-TC; 85027-TC; 85378-TC; 86704; 86706; 86803; 87040-TC; 87070-TC; 87081-TC; 87340; 87536; 92526; 92611-TC; 93307-TC; 94002-TC; 94003-TC; 94760-TC; 97110-TC; 97116-TC; 97530-TC; A4216; C1751; C9113; G0378; J0330; J0696; J1630; J1644; J1815; J1940; J1956; J2060; J2270; J2354; J2405; J2916; J2930; J3370; J3475; J3480; J3490; J7030; J7040; J7050; J7060; J7070; Q9967

== ENCOUNTER 2019-05-01 23:47 | Emergency (ER) | payer OTHER ==
[~2019-05-01] VITALS: Ht 175.3 cm; Wt 67.1 kg
[~2019-05-01 23:47] MED LIST changes: +ACET325T53 PO; +DIVA250T4 PO
[2019-05-01 23:51] VITALS: BP 111/73
--- NOTE | 2019-05-02 00:07 | NUR ---
Patient discharged to home in stable condition. Written and verbal after care instructions given. Patient verbalizes understanding of instruction. Pt ambulatory with a steady gait
== END 2019-05-02 00:17 | disposition home or self-care (01) ==
LOC: ER 23:50
DX: J11.1 Influenza due to unidentified influenza virus with other respiratory manifestations (principal); F17.200 Nicotine dependence, unspecified, uncomplicated; Z60.2 Problems related to living alone; Z79.899 Other long term (current) drug therapy

== ENCOUNTER 2019-06-03 13:40 | Emergency (ER) | payer OTHER ==
[~2019-06-03] VITALS: Ht 167.6 cm; Wt 63.5 kg
[~2019-06-03 13:40] MED LIST changes: -LEVO25TA7 PO
--- NOTE | 2019-06-03 13:57 | NUR ---
MEDICAL SCREENING EXAM DONE BY DR CABRERA, SHE DECIDE TO LEAVE AMA SAYING "THIS [facility] HAS BAD JEANNE"
[2019-06-03 14:00] VITALS: BP 110/50
--- NOTE | 2019-06-03 14:00 | NUR ---
Patient does not wish to proceed with medical care recommended by Dr. Marquez. Patient given information related to possible complications, up to and including , which could occur as a result of leaving the hospital at this time. Patient verbalizes understanding of risks involved due to leaving against medical advice. Patient has signed AMA form.
== END 2019-06-03 14:01 | disposition home or self-care (01) ==
LOC: ER 13:44
DX: R41.82 Altered mental status, unspecified (principal)

== ENCOUNTER 2023-01-28 16:39 | Inpatient (IN) | payer OTHER ==
[~2023-01-28] VITALS: Ht 172.7 cm; Wt 68.5 kg
[2023-01-28] MEDS ORDERED: LEVO200T8 PO (19:26)
[2023-01-28] MEDS ORDERED: MORPHINE SULFATE INJ 2 MG/ML DISP.SYRIN IV ONE (20:00)
[2023-01-28] MEDS ORDERED: MAG HYDROX/AL HYDROX/SIMETH 30 ML UDC PO PRN (20:30)
[2023-01-28] MEDS ORDERED: MAGNESIUM HYDROXIDE 30 ML UDC PO PRN (20:30)
[2023-01-28] MEDS ORDERED: ZOLPIDEM TARTRATE 5 MG TABLET PO PRN (20:30)
[2023-01-28] MEDS ORDERED: IV NS 0.9% 1,000 ML IV PRN (20:30)
[2023-01-28] MEDS ORDERED: ACETAMINOPHEN 325 MG TABLET PO PRN (20:30)
[2023-01-28] MEDS ORDERED: Z GUARD REMEDY 4 OZ OINT TP PRN (20:30)
[2023-01-28 20:56] LABS: BASOPHILS % (AUTO) 0.3 % (0.0-2.0); EOSINOPHILS # (AUTO) 0.2 K/uL (0.0-0.7); EOSINOPHILS % (AUTO) 1.9 % (0.0-6.0); HEMATOCRIT 29 % (33-45); HEMOGLOBIN 8.8 g/dL (11.5-14.8); LYMPHOCYTES % (AUTO) 8.4 % (20.0-44.0); MEAN CORPUSCULAR HEMOGLOBIN 20 PG (26.0-33.0); MEAN CORPUSCULAR HGB CONC 31 g/dl (31.0-36.0); MEAN CORPUSCULAR VOLUME 66 fL (82-100); MONOCYTES # (AUTO) 0.6 K/uL (0.1-1.30); MONOCYTES % (AUTO) 5.5 % (2.0-12.0); NEUTROPHILS # (AUTO) 9.5 K/uL (1.8-8.9); NEUTROPHILS % (AUTO) 83.9 % (43.0-81.0); PLATELET COUNT (AUTO) 556 K/uL (150-450); RED BLOOD CELL COUNT(AUTO) 4.32 MIL/uL (4.0-5.2); RED CELL DISTRIBUTION WIDTH 19.2 % (11.5-15.0); WHITE BLOOD COUNT (AUTO) 11.4 K/uL (4.3-11.0)
[2023-01-28] MEDS ORDERED: CEFAZOLIN 1 GM in IV D5W 50 ML IV SCH (21:00)
[2023-01-28 21:04] LABS: CALCIUM, SERUM 10.7 mg/dL (8.5-10.1); CREATININE 0.9 mg/dL (0.6-1.3); POTASSIUM 3.1 mmol/L (3.5-5.1)
[2023-01-28 21:10] LABS: ALBUMIN 2.5 g/dL (3.4-5.0); BILIRUBIN,DIRECT 0.1 mg/dL (0.0-0.2); BILIRUBIN,TOTAL 0.3 mg/dL (0.2-1.0); TOTAL PROTEIN, SERUM 7.8 g/dL (6.4-8.2)
[2023-01-28] MEDS ORDERED: MORPHINE SULFATE INJ 4 MG/ML DISP.SYRIN ONE (21:14)
[2023-01-28 21:33] LABS: INR 1.08 (0.91-1.10); PARTIAL THROMBOPLASTIN TIME 43.8 SEC (24.3-34.3); PROTHROMBIN TIME 11.4 SECS (9.2-11.1)
[2023-01-28 21:40] VITALS: BP 134/83; TEMP 98.4; O2SAT 98
[2023-01-28 22:02] LABS: ANISOCYTOSIS 1+; EOSINOPHILS % (MANUAL) 1 % (0-4); LYMPHOCYTES % (MANUAL) 10 % (16-48); MONOCYTES % (MANUAL) 2 % (0-11.0); NEUTROPHILS % (MANUAL) 87 (42-76); PLATELET ESTIMATE INCREASED
[2023-01-28 22:03] LABS: HYPOCHROMASIA 1+; OVALOCYTES 1+; ROULEAUX 1+
[2023-01-29] VITALS (7 sets, daily range): BP systolic 105–127; BP diastolic 63–85; TEMP 97.3–98.6; O2SAT 95–99
[2023-01-29] MEDS: MORPHINE SULFATE INJ 2 MG/ML DISP.SYRIN IV PRN ×2 (00:51→06:52)
[2023-01-29] MEDS ORDERED: CEFAZOLIN 1 GM ONE (01:54)
[2023-01-29] MEDS ORDERED: POTASSIUM CHLORIDE 20 MEQ TAB.PRT.SR PO ONE ×2 (03:00→11:00)
[2023-01-29 05:58] LABS: BASOPHILS % (AUTO) 0.4 % (0.0-2.0); EOSINOPHILS # (AUTO) 0.2 K/uL (0.0-0.7); EOSINOPHILS % (AUTO) 2.2 % (0.0-6.0); HEMATOCRIT 26 % (33-45); HEMOGLOBIN 7.9 g/dL (11.5-14.8); LYMPHOCYTES # (AUTO) 1.1 K/uL (0.8-4.8); LYMPHOCYTES % (AUTO) 14.1 % (20.0-44.0); MEAN CORPUSCULAR HEMOGLOBIN 21 PG (26.0-33.0); MEAN CORPUSCULAR HGB CONC 31 g/dl (31.0-36.0); MEAN CORPUSCULAR VOLUME 67 fL (82-100); MONOCYTES # (AUTO) 0.6 K/uL (0.1-1.30); MONOCYTES % (AUTO) 7.5 % (2.0-12.0); NEUTROPHILS # (AUTO) 5.9 K/uL (1.8-8.9); NEUTROPHILS % (AUTO) 75.8 % (43.0-81.0); PLATELET COUNT (AUTO) 486 K/uL (150-450); RED BLOOD CELL COUNT(AUTO) 3.85 MIL/uL (4.0-5.2); RED CELL DISTRIBUTION WIDTH 19.1 % (11.5-15.0); WHITE BLOOD COUNT (AUTO) 7.7 K/uL (4.3-11.0)
[2023-01-29 06:15] LABS: CALCIUM, SERUM 9.7 mg/dL (8.5-10.1); CREATININE 0.7 mg/dL (0.6-1.3); MAGNESIUM 1.7 mg/dL (1.8-2.4); PHOSPHORUS 3.3 mg/dL (2.5-4.9); POTASSIUM 3.3 mmol/L (3.5-5.1)
[2023-01-29] MEDS: LEVOTHYROXINE SODIUM 100 MCG TABLET PO SCH (08:27)
[2023-01-29] MEDS: Magnesium 1GM/D5W 100ML PREMIX 100 ML IV SCH ×2 (09:50→11:06)
[2023-01-29] MEDS ORDERED: CEFAZOLIN 1 GM in IV D5W 50 ML IV SCH (10:00)
[2023-01-29] MEDS ORDERED: ANESTHESIA TRAY IN PYXIS 1 EA TRAY MC ONE (10:55)
[2023-01-29] MEDS ORDERED: BUPIVACAINE 0.5 % PF 150 MG/30 ML VIAL ONE (10:55)
[2023-01-29] MEDS ORDERED: VANCOMYCIN 1 GM VIAL ONE (10:56)
[2023-01-29] MEDS ORDERED: FENTANYL PF 100MCG/2ML AMPUL ONE ×2 (13:29→14:29)
[2023-01-29] MEDS ORDERED: MIDAZOLAM HCL 2 MG/2ML VIAL ONE (13:29)
[2023-01-29 13:53] LABS: EOSINOPHILS % (MANUAL) 2 % (0-4); LYMPHOCYTES % (MANUAL) 13 % (16-48); MONOCYTES % (MANUAL) 5 % (0-11.0); NEUTROPHILS % (MANUAL) 80 (42-76)
[2023-01-29 13:54] LABS: ANISOCYTOSIS 1+; HYPOCHROMASIA 1+; OVALOCYTES 1+; PLATELET ESTIMATE INCREASED
[2023-01-29 16:34] LABS: BASOPHILS % (AUTO) 0.2 % (0.0-2.0); EOSINOPHILS # (AUTO) 0.1 K/uL (0.0-0.7); EOSINOPHILS % (AUTO) 1.2 % (0.0-6.0); HEMATOCRIT 29 % (33-45); HEMOGLOBIN 8.7 g/dL (11.5-14.8); LYMPHOCYTES % (AUTO) 7.9 % (20.0-44.0); MEAN CORPUSCULAR HEMOGLOBIN 21 PG (26.0-33.0); MEAN CORPUSCULAR HGB CONC 30 g/dl (31.0-36.0); MEAN CORPUSCULAR VOLUME 69 fL (82-100); MONOCYTES # (AUTO) 0.7 K/uL (0.1-1.30); MONOCYTES % (AUTO) 5.4 % (2.0-12.0); NEUTROPHILS # (AUTO) 10.6 K/uL (1.8-8.9); NEUTROPHILS % (AUTO) 85.3 % (43.0-81.0); PLATELET COUNT (AUTO) 495 K/uL (150-450); RED BLOOD CELL COUNT(AUTO) 4.25 MIL/uL (4.0-5.2); RED CELL DISTRIBUTION WIDTH 18.7 % (11.5-15.0); WHITE BLOOD COUNT (AUTO) 12.5 K/uL (4.3-11.0)
[2023-01-29] MEDS: IV D5/0.45 NACL W/20 MEQ KCL 1L IV PRN ×2 (17:50)
[2023-01-29 17:55] LABS: ANISOCYTOSIS 1+; BASOPHILS % (MANUAL) 1 % (0.0-2.0); HYPOCHROMASIA 1+; LYMPHOCYTES % (MANUAL) 8 % (16-48); MONOCYTES % (MANUAL) 3 % (0-11.0); NEUTROPHILS % (MANUAL) 88 (42-76); OVALOCYTES 1+; PLATELET ESTIMATE INCREASED; ROULEAUX 1+
[2023-01-29] MEDS: MORPHINE SULFATE INJ 4 MG/ML DISP.SYRIN IV PRN ×2 (18:01→19:52)
[2023-01-29] MEDS: ANCEF 1 GM/50 ML D5W IV SCH ×2 (21:02)
[2023-01-30] MEDS: MORPHINE SULFATE INJ 4 MG/ML DISP.SYRIN IV PRN ×5 (01:50→22:53)
[2023-01-30] MEDS: IV D5/0.45 NACL W/20 MEQ KCL 1L IV PRN ×4 (03:53→15:59)
[2023-01-30] MEDS: ANCEF 1 GM/50 ML D5W IV SCH ×4 (04:59→15:00)
[2023-01-30 06:01] LABS: BASOPHILS % (AUTO) 0.2 % (0.0-2.0); EOSINOPHILS # (AUTO) 0.1 K/uL (0.0-0.7); EOSINOPHILS % (AUTO) 0.6 % (0.0-6.0); HEMATOCRIT 25 % (33-45); HEMOGLOBIN 7.9 g/dL (11.5-14.8); LYMPHOCYTES # (AUTO) 1.1 K/uL (0.8-4.8); LYMPHOCYTES % (AUTO) 11.4 % (20.0-44.0); MEAN CORPUSCULAR HEMOGLOBIN 21 PG (26.0-33.0); MEAN CORPUSCULAR HGB CONC 31 g/dl (31.0-36.0); MEAN CORPUSCULAR VOLUME 67 fL (82-100); MONOCYTES # (AUTO) 0.8 K/uL (0.1-1.30); MONOCYTES % (AUTO) 8.3 % (2.0-12.0); NEUTROPHILS # (AUTO) 7.8 K/uL (1.8-8.9); NEUTROPHILS % (AUTO) 79.5 % (43.0-81.0); PLATELET COUNT (AUTO) 496 K/uL (150-450); RED BLOOD CELL COUNT(AUTO) 3.76 MIL/uL (4.0-5.2); RED CELL DISTRIBUTION WIDTH 19.1 % (11.5-15.0); WHITE BLOOD COUNT (AUTO) 9.8 K/uL (4.3-11.0)
[2023-01-30 06:17] LABS: CREATININE 0.8 mg/dL (0.6-1.3); MAGNESIUM 1.9 mg/dL (1.8-2.4); PHOSPHORUS 3.3 mg/dL (2.5-4.9); POTASSIUM 3.9 mmol/L (3.5-5.1)
[2023-01-30 07:30] VITALS: BP 124/66; TEMP 97.7; O2SAT 99
[2023-01-30] MEDS: LEVOTHYROXINE SODIUM 100 MCG TABLET PO SCH (07:45)
[2023-01-30 09:28] LABS: IRON, SERUM 16 ug/dl (50-175); TOTAL IRON BINDING CAPACITY 192 ug/dl (250-450)
[2023-01-30 09:46] LABS: FERRITIN 119 ng/mL (8-388)
[2023-01-30 10:31] LABS: BAND % (MANUAL) 1 % (0.0-5.0); LYMPHOCYTES % (MANUAL) 12 % (16-48); MONOCYTES % (MANUAL) 7 % (0-11.0); NEUTROPHILS % (MANUAL) 80 (42-76)
[2023-01-30 10:36] LABS: PLATELET ESTIMATE INCREASED
[2023-01-30 10:37] LABS: ANISOCYTOSIS 2+; HYPOCHROMASIA 1+
[2023-01-30 10:38] LABS: OVALOCYTES 1+; TEAR DROP CELLS 1+
[2023-01-30] MEDS: oxyCODONE/APAP (5/325 MG) 1 UDTAB TABLET PO PRN (12:09)
[2023-01-30 16:00] VITALS: BP 125/68; TEMP 98.4; O2SAT 95
[2023-01-30 20:00] VITALS: BP 127/68; TEMP 99.2; O2SAT 95
[2023-01-30 20:38] VITALS: BP 127/68; TEMP 99.3; O2SAT 95
[2023-01-31] MEDS: MORPHINE SULFATE INJ 4 MG/ML DISP.SYRIN IV PRN ×3 (03:26→16:03)
[2023-01-31 08:00] VITALS: BP 118/73; TEMP 98.3; O2SAT 97
[2023-01-31] MEDS: LEVOTHYROXINE SODIUM 100 MCG TABLET PO SCH (08:12)
[2023-01-31 09:04] LABS: BASOPHILS % (AUTO) 0.3 % (0.0-2.0); EOSINOPHILS # (AUTO) 0.1 K/uL (0.0-0.7); EOSINOPHILS % (AUTO) 1.6 % (0.0-6.0); HEMATOCRIT 25 % (33-45); HEMOGLOBIN 7.6 g/dL (11.5-14.8); LYMPHOCYTES # (AUTO) 0.9 K/uL (0.8-4.8); LYMPHOCYTES % (AUTO) 11.1 % (20.0-44.0); MEAN CORPUSCULAR HEMOGLOBIN 21 PG (26.0-33.0); MEAN CORPUSCULAR HGB CONC 31 g/dl (31.0-36.0); MEAN CORPUSCULAR VOLUME 67 fL (82-100); MONOCYTES # (AUTO) 0.7 K/uL (0.1-1.30); MONOCYTES % (AUTO) 8.2 % (2.0-12.0); NEUTROPHILS # (AUTO) 6.5 K/uL (1.8-8.9); NEUTROPHILS % (AUTO) 78.8 % (43.0-81.0); PLATELET COUNT (AUTO) 492 K/uL (150-450); WHITE BLOOD COUNT (AUTO) 8.2 K/uL (4.3-11.0)
[2023-01-31 09:16] LABS: CREATININE 0.6 mg/dL (0.6-1.3); POTASSIUM 3.5 mmol/L (3.5-5.1)
[2023-01-31 09:22] LABS: ALBUMIN 2.2 g/dL (3.4-5.0); BILIRUBIN,TOTAL 0.2 mg/dL (0.2-1.0); MAGNESIUM 1.7 mg/dL (1.8-2.4); TOTAL PROTEIN, SERUM 6.8 g/dL (6.4-8.2)
[2023-01-31 09:29] LABS: THYROID STIMULATING HORMONE 10.272 uIU/mL (0.358-3.74)
[2023-01-31 11:07] LABS: *SPE A/G RATIO 0.6 (0.7-1.7); *SPE ALBUMIN 2.4 g/dL (2.9-4.4); *SPE ALPHA-1-GLOBULIN 0.4 g/dL (0.0-0.4); *SPE ALPHA-2-GLOBULIN 0.9 g/dL (0.4-1.0); *SPE GLOBULIN, TOTAL 3.8 g/dL (2.2-3.9); *SPE M-SPIKE Not Observed g/dL (Not Observed); *SPE PROTEIN TOTAL 6.2 g/dL (6.0-8.5); *SPEGAMMA GLOBULIN 1.5 g/dL (0.4-1.8)
[2023-01-31 11:09] LABS: LYMPHOCYTES % (MANUAL) 10 % (16-48); MONOCYTES % (MANUAL) 7 % (0-11.0); NEUTROPHILS % (MANUAL) 83 (42-76); PLATELET ESTIMATE ADEQUATE
[2023-01-31 11:10] LABS: ANISOCYTOSIS 1+
[2023-01-31] MEDS ORDERED: OXYC1TAB8 PO (11:21)
[2023-01-31] MEDS ORDERED: FERR325T23 PO (11:21)
[2023-01-31] MEDS ORDERED: RIVA10TA PO (11:21)
[2023-01-31] MEDS ORDERED: ENOXAPARIN SODIUM 40 MG/0.4 ML DISP.SYRIN SQ SCH (11:30)
[2023-01-31] MEDS ORDERED: MAGNESIUM OXIDE 400 MG TABLET PO ONE (12:30)
[2023-01-31] MEDS ORDERED: SOD FERRIC GLUC 125 MG in IV NS 0.9% 100 ML IV SCH (14:00)
[2023-01-31] MEDS: ONDANSETRON HCL/PF 4 MG/2 ML VIAL IVP PRN (15:23)
[2023-01-31 15:57] VITALS: BP 137/85; TEMP 98.2; O2SAT 94
[2023-01-31] MEDS: oxyCODONE/APAP (5/325 MG) 1 UDTAB TABLET PO PRN (16:29)
[2023-01-31 20:00] VITALS: BP 136/88; TEMP 99; O2SAT 94
[2023-02-01 04:51] LABS: BARBITURATE, URINE NEGATIVE (NEGATIVE); CANNABINOID, URINE NEGATIVE (NEGATIVE); COCCAINE, URINE NEGATIVE (NEGATIVE); PHENCYCLIDINE SCREEN,URINE NEGATIVE (NEGATIVE)
[2023-02-01 04:52] LABS: AMPHETAMINE, URINE POSITIVE (NEGATIVE); BENZODIAZEPINE, URINE POSITIVE (NEGATIVE); OPIATE, URINE POSITIVE (NEGATIVE)
[2023-02-01] MEDS: ONDANSETRON HCL/PF 4 MG/2 ML VIAL IVP PRN (06:21)
[2023-02-01 06:53] LABS: BASOPHILS % (AUTO) 0.3 % (0.0-2.0); EOSINOPHILS # (AUTO) 0.1 K/uL (0.0-0.7); EOSINOPHILS % (AUTO) 1.5 % (0.0-6.0); HEMATOCRIT 25 % (33-45); HEMOGLOBIN 7.8 g/dL (11.5-14.8); LYMPHOCYTES # (AUTO) 0.9 K/uL (0.8-4.8); LYMPHOCYTES % (AUTO) 12.6 % (20.0-44.0); MEAN CORPUSCULAR HEMOGLOBIN 21 PG (26.0-33.0); MEAN CORPUSCULAR HGB CONC 31 g/dl (31.0-36.0); MEAN CORPUSCULAR VOLUME 67 fL (82-100); MONOCYTES # (AUTO) 0.7 K/uL (0.1-1.30); MONOCYTES % (AUTO) 9.2 % (2.0-12.0); NEUTROPHILS # (AUTO) 5.6 K/uL (1.8-8.9); NEUTROPHILS % (AUTO) 76.4 % (43.0-81.0); PLATELET COUNT (AUTO) 501 K/uL (150-450); RED BLOOD CELL COUNT(AUTO) 3.73 MIL/uL (4.0-5.2); WHITE BLOOD COUNT (AUTO) 7.4 K/uL (4.3-11.0)
[2023-02-01] MEDS: LEVOTHYROXINE SODIUM 100 MCG TABLET PO SCH (08:41)
[2023-02-01] MEDS: oxyCODONE/APAP (5/325 MG) 1 UDTAB TABLET PO PRN (08:41)
[2023-02-01 09:55] LABS: EOSINOPHILS % (MANUAL) 1 % (0-4); LYMPHOCYTES % (MANUAL) 14 % (16-48); MONOCYTES % (MANUAL) 5 % (0-11.0); NEUTROPHILS % (MANUAL) 80 (42-76)
[2023-02-01 09:56] LABS: PLATELET ESTIMATE INCREASED
[2023-02-01 09:57] LABS: ANISOCYTOSIS 1+
== END 2023-02-01 11:00 | disposition left against medical advice (07) | DRG 323 ==
LOC: ER 16:43 → MED 21:17
PROVIDERS: ADMIT Nurse Practitioner Acute Care; ATTEND Nurse Practitioner Family
PROC: 0SRS0JZ Replacement of Left Hip Joint, Femoral Surface with Synthetic Substitute, Open Approach (ICD-10-PCS; principal; 2023-01-29)
DX: S72.002A Fracture of unspecified part of neck of left femur, initial encounter for closed fracture (principal); E44.0 Moderate protein-calorie malnutrition; D75.839 Thrombocytosis, unspecified; E03.9 Hypothyroidism, unspecified; E88.09 Other disorders of plasma-protein metabolism, not elsewhere classified; I89.0 Lymphedema, not elsewhere classified; E87.6 Hypokalemia; E83.42 Hypomagnesemia; D72.829 Elevated white blood cell count, unspecified; D50.9 Iron deficiency anemia, unspecified; W18.30XA Fall on same level, unspecified, initial encounter; Y93.9 Activity, unspecified; Y92.89 Other specified places as the place of occurrence of the external cause; I87.8 Other specified disorders of veins; Z68.23 Body mass index [BMI] 23.0-23.9, adult; L97.919 Non-pressure chronic ulcer of unspecified part of right lower leg with unspecified severity; Z85.72 Personal history of non-Hodgkin lymphomas
CPT/HCPCS: 36415; 71045-TC; 73502; 80048-TC; 80053-TC; 80076-TC; 82728-TC; 83540-TC; 83735-TC; 84100-TC; 84155; 84165; 84439-TC; 84443-TC; 85025-TC; 85730-TC; 86850-TC; 87081-TC; 93307-TC; 97110-TC; 97112-TC; 97116-TC; 97530-TC; A4217; A4223; A6209; C1776; G0378; J0690; J1100; J1650; J2250; J2270; J2405; J2704; J2916; J3010; J3370; J3475; J3480; J3490; J7030; J7060